=== PATIENT | male | born 1985 | race Caucasian/White ===

== ENCOUNTER 2021-01-16 11:46 | Outpatient (REF) | payer OTHER, SELFPAY | END 2021-01-16 11:47 | disposition home or self-care (01) | LOC: HO.LAB 11:46 | PROVIDERS: Visit Provider Internal Medicine | DX: Z20.822 Contact with and (suspected) exposure to COVID-19 (principal) | CPT/HCPCS: 36415; C9803; U0003; U0005 ==

== ENCOUNTER 2021-02-17 10:18 | Outpatient (REF) | payer MEDICAID, SELFPAY | END 2021-02-17 10:19 | disposition home or self-care (01) | LOC: HO.LAB 10:18 | PROVIDERS: Visit Provider Internal Medicine | DX: Z20.822 Contact with and (suspected) exposure to COVID-19 (principal) | CPT/HCPCS: 36415; C9803; U0003; U0005 ==

== ENCOUNTER 2021-03-13 11:42 | Outpatient (REF) | payer MEDICAID, SELFPAY ==
[2021-03-13 13:17] LABS: COVID-19 Test Negative (Negative); IDNOW Serial# 55D5AD1C
== END 2021-03-13 11:43 | disposition home or self-care (01) ==
LOC: HO.LAB 11:42
PROVIDERS: Visit Provider Internal Medicine
DX: Z20.822 Contact with and (suspected) exposure to COVID-19 (principal)
CPT/HCPCS: 36415; 87635; C9803

== ENCOUNTER 2021-03-24 11:06 | Outpatient (REF) | payer MEDICAID, SELFPAY ==
[2021-03-24 11:47] LABS: COVID-19 Test Negative (Negative)
== END 2021-03-24 11:07 | disposition home or self-care (01) ==
LOC: HO.LAB 11:06
PROVIDERS: Visit Provider Internal Medicine
DX: Z20.822 Contact with and (suspected) exposure to COVID-19 (principal)
CPT/HCPCS: 36415; 87635; C9803

== ENCOUNTER 2021-05-23 17:49 | Emergency (ER) | payer MEDICAID, SELFPAY ==
--- NOTE | ~2021-05-23 | XR_ITS ---
EXAMINATION: XR CHEST CLINICAL INFORMATION: Chest COMPARISON: None TECHNIQUE: 2 views of the chest were obtained. FINDINGS: No significant abnormality is noted involving the heart, lungs, mediastinum, bony thorax or soft tissues. XR/XR chest 2V IMPRESSION: Unremarkable examination.
[2021-05-23 18:16] VITALS: BP 145/70; PULSE 80; RESP 18; TEMP 36.7; O2SAT 97; BMI 30.5
--- NOTE | 2021-05-23 18:37 | ECG_ITS ---
Test Reason : CHEST PAIN Blood Pressure : / mmHG Vent. Rate : 086 BPM Atrial Rate : 086 BPM P-R Int : 136 ms QRS Dur : 080 ms QT Int : 362 ms P-R-T Axes : 046 050 022 degrees QTc Int : 433 ms Normal sinus rhythm Normal ECG No previous ECGs available Referred By: Generic ED Physician Electronically Signed By:Alan Zimmer
--- NOTE | 2021-05-23 19:34 | ED.CHESTPAIN ---
HPI - Chest Pain General Chief Complaint: Chest Pain Stated Complaint: chest pain Time Seen by Provider: 05/23/21 18:53 Source: patient Mode of arrival: ambulatory Limitations: no limitations History of Present Illness MD complaint: chest pain Onset (ago): day(s) (2) Timing of current episode: constant Prior episodes: No Onset: during rest Pain location: left chest Pain radiation: none Severity: moderate Quality: aching Relieving factors: nothing Exacerbating factors: palpation and movement Treatment prior to arrival: none Related Data Previous Rx's Medication Instructions Recorded cyclobenzaprine 10 mg PO TID PRN #14 tab 05/23/21 lidocaine 1 patch TOPICAL DAILY PRN #10 ea 05/23/21 Allergies Allergy/AdvReac Type Severity Reaction Status Date / Time Unable to Assess Allergy Verified 05/23/21 18:53 Review of Systems Review of Systems: Constitutional : No Weight loss, No Fever, No Chills ENT/Mouth : No sore throat, No Rhinorrhea Eyes: No Eye Pain, No Swelling Cardiovascular : pos Chest Pain, no SOB, no Dyspnea on Exertion, No Orthopnea, No Edema, No Palpitations Respiratory : No Cough, No Sputum Gastrointestinal : no Nausea, No Vomiting, No Diarrhea, No abdominal Pain, No Hematochezia, No Melena Genitourinary : No Dysuria, No Urinary Frequency Musculoskeletal : No joint pain, No Myalgias, No Joint Swelling Skin : No Skin Lesions, No rash Neuro : No Weakness, No Numbness, No Dizziness, No Headache Psych : No Anxiety/Panic, No Depression Heme/Lymph: No Bruising, No Lymphadenopathy Endocrine : No Polyuria, No Polydipsia All other systems reviewed and are negative [facility] Past Medical History Attestation statement: The following information was validated with the patient. Medical History No known health problems Social History Social History Alcohol intake: never Patient Tobacco Use Status: Current everyday Tobacco user Smoked in Last 30 Days: No Use of substances other than those prescribed or required for medical reasons: No Advance Directives: No Advance Directives Information Provided: Yes Physical Exam Vital Signs: Vital Signs: Last Vital Signs Temp 98.2 F 05/23/21 22:34 Pulse 76 05/23/21 22:34 Resp 16 05/23/21 22:34 BP 112/68 05/23/21 22:34 Pulse Ox 99 05/23/21 22:34 Body Mass Index 30.5 Appearance: Alert. Oriented X3. No acute distress. Eyes: Pupils equal, round and reactive to light. ENT: Pharynx normal. Neck: Normal inspection. Neck supple. CVS: Normal heart rate and rhythm. Pulses normal. Chest: L pectoralis ttp no mass/swelling/redness noted Respiratory: No respiratory distress. Breath sounds normal. Abdomen: Soft and nontender. Skin: Skin warm and dry. Normal skin color. Normal skin turgor. Extremities: No lower extremity edema. No calf ttp Neuro: Oriented X 3. No motor deficit. No sensory deficit. Course Course Course Narrative: nonischemic EKG, repeat trop flat - stable for DC MDM - Chest Pain MDM Narrative Medical decision making narrative: 36 yo male with no sig PMH here with reproduceable CWP for 2 days, no other symptoms, very tender on L pectoralis no infection/mass felt, PERC negative, distal pulses intact doubt dissection at this time will obtain EKG, CXR, 1 troponin if negative stable for DC with CWP Lab Data Result diagrams: 05/23/21 22:29 05/23/21 22:30 Labs: Lab Results 05/23/21 05/23/21 05/23/21 Range/Units 19:53 22:29 22:30 WBC 8.7 (4.8-10.8) X10*3/uL RBC 5.36 (4.60-5.80) X10*6/uL Hgb 15.9 (14.0-18.0) g/dl Hct 46.0 (42-52) % MCV 85.8 (80-98) fL MCH 29.7 (27.0-33.0) pg MCHC 34.6 (31.0-36.0) g/dl RDW 12.8 (11.0-16.0) % Plt Count 218 (160-400) X10*3/uL MPV 9.9 (9.4-12.4) fL Immature Gran % (Auto) 0.7 H (0.0-0.4) % Neut % (Auto) 60.9 (45-73) % Lymph % (Auto) 26.7 (20-40) % Taney % (Auto) 8.8 (2-11) % Eos % (Auto) 2.8 (0-4) % Baso % (Auto) 0.1 (0-2) % Lymph # (Auto) 2.3 (1.2-4.9) X10*3/uL Taney # (Auto) 0.8 (0.1-1.2) X10*3/uL Eos # (Auto) 0.2 (0.0-0.4) X10*3/uL Baso # (Auto) 0.0 (0.0-0.2) X10*3/uL Abs Immat Gran (auto) 0.06 H (0.00-0.03) X10*3/uL Absolute Neuts (auto) 5.3 (2.0-8.3) X10*3/uL Absolute Nucleated RBC 0.000 (0.0-0.012) X10*3/uL Nucleated RBC % (auto) 0.0 (0.0-0.2) /100WBC Sodium 141 (135-145) mmol/L Potassium 4.3 (3.3-5.1) mmol/L Chloride 108 (96-108) mmol/L Carbon Dioxide 24 (22-29) mmol/L Anion Gap 13 (12-20) BUN 10 (9-16) mg/dL Creatinine 0.82 (0.5-1.4) mg/dL Estim Creat Clear Calc 156.8 Estimated GFR > 60 Random Glucose 78 (60-115) mg/dL Calcium 9.2 (8.4-10.2) mg/dL Troponin I High Sens 15.9 (<3.5-35.0) ng/L C-Reactive Protein 0.15 (< or = 0.50) mg/dL 05/23/21 Range/Units 22:30 WBC (4.8-10.8) X10*3/uL RBC (4.60-5.80) X10*6/uL Hgb (14.0-18.0) g/dl Hct (42-52) % MCV (80-98) fL MCH (27.0-33.0) pg MCHC (31.0-36.0) g/dl RDW (11.0-16.0) % Plt Count (160-400) X10*3/uL MPV (9.4-12.4) fL Immature Gran % (Auto) (0.0-0.4) % Neut % (Auto) (45-73) % Lymph % (Auto) (20-40) % Taney % (Auto) (2-11) % Eos % (Auto) (0-4) % Baso % (Auto) (0-2) % Lymph # (Auto) (1.2-4.9) X10*3/uL Taney # (Auto) (0.1-1.2) X10*3/uL Eos # (Auto) (0.0-0.4) X10*3/uL Baso # (Auto) (0.0-0.2) X10*3/uL Abs Immat Gran (auto) (0.00-0.03) X10*3/uL Absolute Neuts (auto) (2.0-8.3) X10*3/uL Absolute Nucleated RBC (0.0-0.012) X10*3/uL Nucleated RBC % (auto) (0.0-0.2) /100WBC Sodium (135-145) mmol/L Potassium (3.3-5.1) mmol/L Chloride (96-108) mmol/L Carbon Dioxide (22-29) mmol/L Anion Gap (12-20) BUN (9-16) mg/dL Creatinine (0.5-1.4) mg/dL Estim Creat Clear Calc Estimated GFR Random Glucose (60-115) mg/dL Calcium (8.4-10.2) mg/dL Troponin I High Sens 14.2 (<3.5-35.0) ng/L C-Reactive Protein (< or = 0.50) mg/dL ECG Data ECG #1: Attestation: I personally reviewed and interpreted this ECG as follows: ECG interpretation date: 05/23/21 ECG interpretation time: 19:39 Interpretation: Rate: 86 Rhythm: NSR [place]: normal Normal P waves. Normal RAISA. Normal QRS complex. ST T wave : normal no NANCI qTC: normal prior studies: no acute ischemia The study has been interpreted contemporaneously by me. . Discharge Plan Discharge Clinical Impression: Acute chest wall pain Patient Disposition: Home, Self-Care Instructions: Chest Wall Pain (ED) Additional Instructions: return to ED for any worsening symptoms or concerns Prescriptions: New cyclobenzaprine 10 mg tablet 10 mg PO TID PRN (Reason: muscle spasm) Qty: 14 RF: 0 lidocaine 4 % adhesive patch,medicated 1 patch topical DAILY PRN (Reason: pain) Qty: 10 RF: 0 Referrals: Leatha Martinez MD [Primary Care Provider] - 2 days (if not better) Print Language: Brazilian
[2021-05-23 19:48] VITALS: BP 117/71; PULSE 81; RESP 17; TEMP 36.7; O2SAT 97
--- NOTE | 2021-05-23 19:51 | PC.NURSE ---
PT REPORTS LEFT SIDED CHEST PAIN RADIATING DOWN LEFT SIDE. DENIES ACCOMPANYING SYMPTOMS. NO WORSENING FACTORS. INTERMITTENT FOR DAYS WORSENING TODAY. SKIN PWD RESPIRATIONS EVEN UNLABORED, A&Ox4. VSS, NSR ON HEALTH IT SPECIALIST. EVALUATED BY DR. PINTO, AWAITING TESTING. AWARE OF PLAN OF CARE.
[2021-05-23] MEDS: Cyclobenzaprine HCl 10 MG TABLET PO (20:10)
[2021-05-23 20:40] LABS: Troponin-I High Sensitivity 15.9 ng/L (<3.5-35.0)
[2021-05-23 22:34] VITALS: BP 112/68; PULSE 76; RESP 16; TEMP 36.8; O2SAT 99
[2021-05-23 22:35] LABS: MANUAL DIFF FLAG NO
[2021-05-23 22:36] LABS: Basophils Percent Auto 0.1 % (0-2); Eosinophils Absolute Auto 0.2 X10*3/uL (0.0-0.4); Eosinophils Percent Auto 2.8 % (0-4); Hemoglobin 15.9 g/dl (14.0-18.0); Imm Gran Abs Auto 0.06 X10*3/uL (0.00-0.03); Imm Gran Pct Auto 0.7 % (0.0-0.4); Lymphocytes Absolute Auto 2.3 X10*3/uL (1.2-4.9); Lymphocytes Percent Auto 26.7 % (20-40); Mean Corpuscular HGB Conc 34.6 g/dl (31.0-36.0); Mean Corpuscular Hemoglobin 29.7 pg (27.0-33.0); Mean Corpuscular Volume 85.8 fL (80-98); Mean Platelet Volume 9.9 fL (9.4-12.4); Monocytes Absolute Auto 0.8 X10*3/uL (0.1-1.2); Monocytes Percent Auto 8.8 % (2-11); Neutrophils Absolute Auto 5.3 X10*3/uL (2.0-8.3); Neutrophils Percent Auto 60.9 % (45-73); Platelet Count 218 X10*3/uL (160-400); Red Blood Count 5.36 X10*6/uL (4.60-5.80); Red Cell Distribution Width 12.8 % (11.0-16.0); White Blood Count 8.7 X10*3/uL (4.8-10.8)
[2021-05-23 23:02] LABS: Anion Gap 13 (12-20); Blood Urea Nitrogen 10 mg/dL (9-16); C Reactive Protein 0.15 mg/dL (< or = 0.50); Calcium 9.2 mg/dL (8.4-10.2); Carbon Dioxide 24 mmol/L (22-29); Chloride 108 mmol/L (96-108); Creatinine Clr Calc Pharmacy 156.8; Estimated Glomerular Filt Rate > 60; Glucose Random 78 mg/dL (60-115); Potassium 4.3 mmol/L (3.3-5.1); Sodium 141 mmol/L (135-145)
[2021-05-23 23:09] LABS: Troponin-I High Sensitivity 14.2 ng/L (<3.5-35.0)
== END 2021-05-23 23:41 | disposition home or self-care (01) ==
PROVIDERS: Emergency Provider Emergency Medicine; PCP Pediatrics
DX: R07.89 Other chest pain (principal)
CPT/HCPCS: 36415; 71046; 80048; 84484; 85025; 86140; 93005; 99283; 99285

== ENCOUNTER 2021-06-16 14:17 | Outpatient (REF) | payer MEDICAID, SELFPAY ==
--- NOTE | ~2021-06-16 | MM_ITS ---
EXAMINATION: MM DIAGNOSTIC DIGITAL BREAST TOMOSYNTHESIS, BILATERAL US DIAGNOSTIC ULTRASOUND BREAST, LEFT CLINICAL INFORMATION: 36-year-old male with chronic fullness retroareolar left breast and tenderness for over one year. No nipple discharge. No prior breast imaging. COMPARISON: None (current study represents initial baseline exam). TECHNIQUE: Digital breast tomosynthesis is performed in both the craniocaudal and mediolateral oblique views along with computer-aided detection (CAD). Synthesized 2D images are generated from the tomosynthesis. Additional spot exaggerated left CC view is obtained. Ultrasound left breast is targeted to the retroareolar and periareolar regions as well as the outer quadrant. Grayscale imaging and color Doppler are performed without and with harmonics. FINDINGS: There are scattered areas of fibroglandular density (ACR BI-RADS breast composition Category b). Right breast tissue composition is fatty. There is mild gynecomastia type parenchymal pattern on left without underlying mass or architectural abnormality. There are no abnormal calcifications. The axilla and skin contours are unremarkable. There is no skin thickening or coarsening of the stromal markings. Ultrasound left breast demonstrates no cystic or solid mass, architectural abnormality, skin thickening, or edema tracking in soft tissue planes. Results are discussed with the patient at time of visit, using an sash assembler. Patient should be managed based on the clinical impression. If clinically indicated, further evaluation may be considered with surgical consult. Decision to proceed with biopsy should be based on clinical grounds and degree of clinical concern. MM/MM tomosynthesis diagnostic BI IMPRESSION: Mild asymmetric gynecomastia on left. Unremarkable right breast. ASSESSMENT: BI-RADS 2: Benign RECOMMENDATION: Patient may be managed based on the clinical impression as needed.
== END 2021-06-16 14:18 | disposition home or self-care (01) ==
LOC: HO.MAMMO 14:17
PROVIDERS: Visit Provider Emergency Medicine
DX: N63.32 Unspecified lump in axillary tail of the left breast (principal)
CPT/HCPCS: 76642; 77062; 77066

== ENCOUNTER 2022-05-16 13:24 | Outpatient (REF) | payer MEDICAID, SELFPAY ==
--- NOTE | ~2022-05-16 | US_ITS ---
EXAMINATION: US SOFT TISSUE HEAD/NECK CLINICAL INFORMATION: Right parotid swelling. COMPARISON: None TECHNIQUE: Linear transducer grayscale and color Doppler examination of the right parotid area with left scanned for comparison. FINDINGS: Imaging through the right parotid gland reveals no obvious mass, stone or fluid collection. The right parotid gland measures 5.4 x 2.3 x 4.4 cm. The left parotid gland measures 5.0 x 2.6 x 4.2 cm. No focal lesion, echogenic stone or edema seen. US/US soft tiss head and/or neck IMPRESSION: Bilateral symmetrical unremarkable parotid gland ultrasound.
== END 2022-05-16 13:25 | disposition home or self-care (01) ==
LOC: HO.US 13:24
PROVIDERS: Visit Provider Emergency Medicine
DX: K11.20 Sialoadenitis, unspecified (principal); R60.0 Localized edema
CPT/HCPCS: 76536

== ENCOUNTER 2022-05-16 19:12 | Emergency (ER) | payer MEDICAID, SELFPAY ==
--- NOTE | ~2022-05-16 | CT_ITS ---
EXAMINATION: CT SOFT TISSUE NECK WITHOUT CONTRAST CLINICAL INFORMATION: Bilateral lymphadenopathy. Question lymphoma. COMPARISON: None TECHNIQUE: Helical imaging was performed in the axial plane with generation of coronal and sagittal reformatted images. This CT examination was performed using dose optimization techniques as appropriate, variously including the following: *Automated exposure control *Adjustment of mA and/or kV according to patient size (this includes techniques or standardized protocols for targeted exams where dose is matched to indication/reason for exam; i.e. extremities or head) *Use of iterative reconstruction technique DLP: 695 mGy-cm FINDINGS: Mildly asymmetrically enlarged right jugulodigastric lymph node measuring approximately 1.1 cm in short axis on series 2-65. The lymph node is morphologically normal with preserved fatty hilum. No other pathologically enlarged cervical lymph nodes. The parotid glands are homogeneous in attenuation. The submandibular glands are normal. No contour abnormality is seen within the oral cavity or pharyngeal mucosal space. The laryngeal structures are normal. The parapharyngeal fat is preserved. Unremarkable appearance of the manager market development and carotid spaces. No extra mucosal soft tissue mass or fluid collection is seen. There is mild nonspecific fat stranding/edema in the right and left anterior neck deep to the platysma muscle. No retropharyngeal fluid collection is seen. The thyroid gland is normal. The superior mediastinum is unremarkable. The lung apices are clear. The mastoid air cells and visualized portions of the paranasal sinuses are well-aerated. The temporomandibular joints are normal. No periapical disease is identified. No acute osseous abnormalities are seen. Healed right clavicle fracture deformity. The imaged portions of the brain parenchyma are unremarkable. Globes and retro-orbital structures are within normal limits. CT/CT soft tissue neck wo con IMPRESSION: 1. Nonspecific mild fat stranding/edema deep to the platysma muscle on the right left sides of the anterior neck. No fluid collection. 2. Mildly asymmetrically prominent right jugulodigastric lymph node, nonspecific. No other enlarged cervical lymph nodes.
[2022-05-16 19:34] VITALS: BP 132/73; PULSE 94; RESP 18; TEMP 36.7; O2SAT 97; BMI 28.2
[2022-05-16 20:03] LABS: Strep A Nucleic Acid Negative (Negative)
[2022-05-16 20:07] LABS: COVID-19 Test Negative (Negative); IDNOW Serial# 16C4AD1C; Influenza A Negative (Negative); Influenza B2 Negative (Negative)
--- NOTE | 2022-05-16 22:20 | ED.URI ---
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 Patient tells me he is unsure about his vaccination status is he was born in [place]. He denies any recent sick contacts or travel. He denies any difficulty swallowing, difficulty breathing, shortness of breath, chest pain, vomiting, diarrhea or abdominal pain. Related Data Previous Rx's Medication Instructions Recorded cyclobenzaprine 10 mg tablet 10 mg PO TID PRN muscle spasm #14 05/23/21 tabs lidocaine 4 % topical patch 1 patch topical DAILY PRN pain #10 05/23/21 ea cefpodoxime 200 mg tablet 200 mg PO BID #14 tabs 05/16/22 doxycycline monohydrate 100 mg 100 mg PO BID #14 tabs 05/16/22 tablet Allergies Allergy/AdvReac Type Severity Reaction Status Date / Time Penicillins [PCN] Allergy Unknown Verified 05/16/22 19:36 Review of Systems Review of Systems: Yes all other systems are reviewed and are negative Constitutional: Constitutional: Reports no additional constitutional complaints, Denies body ache(s), Denies chills, Reports fever(s), Reports headache(s) and Denies weakness Eyes: Eyes: Reports no additional eye complaints and Denies change in vision ENT: Reports system reviewed and no additional complaints, except as documented, Denies dizziness, Reports headache(s), Denies nasal congestion, Denies nasal discharge, Denies neck pain and Reports sore throat Cardiovascular: Cardiovascular: Reports no additional cardiovascular complaints, Denies chest pain, Denies leg edema and Denies dyspnea Respiratory: Respiratory: Reports no additional respiratory complaints, Denies cough and Denies dyspnea Gastrointestinal: Gastrointestinal: Reports no additional gastrointestinal complaints, Denies abdominal pain, Denies diarrhea, Denies nausea and Denies vomiting Genitourinary: Genitourinary: Denies urinary incontinence Musculoskeletal: Musculoskeletal: Reports no additional musculoskeletal complaints, Denies back pain, Denies arthralgias, Denies joint swelling, Denies neck pain, Denies numbness and Denies tingling Integumentary/Breasts: Skin/Breast: Reports system reviewed and no additional complaints, except as docu and Denies rash Neurologic: Reports system reviewed and no additional complaints, except as documented, Denies Abnormal speech present, Denies dizziness, Reports headache(s), Denies numbness, Denies tingling and Denies weakness PMFSH Past Medical History Attestation statement: The following information was validated with the patient. Source: old records reviewed and nursing notes reviewed Medical History No known health problems Social History Social History Alcohol intake: never Patient Tobacco Use Status: Current everyday Tobacco user Advance Directives: No Advance Directives Information Provided: No Physical Exam Vital Signs: Vital Signs: Last Vital Signs Temp 98.1 F 05/16/22 19:34 Pulse 94 05/16/22 19:34 Resp 18 05/16/22 19:34 BP 132/73 05/16/22 19:34 Pulse Ox 97 05/16/22 19:34 O2 Del Method 05/16/22 19:34 BMI result Body Mass Index 28.2 Const: General: cooperative, healthy appearing, comfortable and no acute distress Orientation/consciousness: patient oriented x3 Limitations: no limitations HEENT: Head: Yes normal to inspection Ears: hearing grossly normal bilaterally and TM's normal bilaterally General nose exam: Normal external nose present Face and sinus: Yes normal facial exam Mouth: Normal oral and palatal mucosa present Throat: Yes posterior oropharynx normal, Yes tonsils normal and Yes uvula midline Eyes: General: appearance normal, both eyes and all related structures Pupils: Equal, round and reactive pupils present Neck: Other: Bilateral preauricular and postauricular lymphadenopathy Neck: Yes normal visual inspection and Yes full ROM Chest: Chest palpation & inspection: normal inspection of the chest Resp: Effort & Inspection: normal respiratory effort Auscultation: clear to auscultation bilaterally Cardio: Rate: regular rate Rhythm: regular rhythm Peripheral pulses: Peripheral pulses 2+ throughout GI: Inspection: Yes normal to inspection Palpation (GI): Soft to palpation and nontender Auscultation: normal bowel sounds Back/Spine/Pelvis: Thoracic/Lumbar Spine: thoracic and lumbar spine normal to inspection Skin: General skin exam: no rashes or lesions noted Neuro: General: patient oriented x3, no focal motor deficits and normal sensation to monofilament Cranial nerves: Yes Equal, round and reactive pupils present Cognition (Neuro): normal cognition Speech: No Abnormal speech present Gait exam (Neuro): Normal gait present Motor exam (neuro): 5/5 motor strength present throughout Extrem: General: Yes normal to inspection Course Course Course Narrative: 37-year-old male here with 2 days of flu-like symptoms in addition to bilateral lymphadenopathy. Rapid flu, strep and COVID from triage are negative. Due to lymphadenopathy there is additional concern for mononucleosis, lymphoma, parotitis. will check labs, monoscreen, CT softneck Reevaluation(s) Reevaluation #1: the patient was evaluated during a time of global shortage of iodinated contrast media. Based on guidance from the [employer], best practices, and local institutional broaches alternate past for evaluating managing the patient may have been employed in order to provide optimal care during the shortage. The current situation has been discussed with the patient Reevaluation #2: CT soft tissue neck MPRESSION: 1.? Nonspecific mild fat stranding/edema deep to the platysma muscle on the right left sides of the anterior neck. No fluid collection. 2.? Mildly asymmetrically prominent right jugulodigastric lymph node, nonspecific. No other enlarged cervical lymph nodes. _labs and mono negative Dicussed with Dr Yanez. Non-specific findings on CT. Will treat with course of antibiotics with Strict f/u with PCP in 7 days for resolution of symptoms. Explained to patient if no improvement he may need further w/u including biopsy. this was explained with the lead data entry operator. reviewed worrisome signs and symptoms of when to return to the emergency department. Comfortable discharge home. Time: 23:50 MDM - URI/Sore Throat MDM Narrative Medical decision making narrative: viral syndrome, mononucleosis, lymphoma, parotitis Medical Records Attestation: I reviewed the patient's medical records. Lab Data Attestation: I reviewed the patient's lab results. Result diagrams: 05/16/22 22:18 05/16/22 22:18 Labs: Lab Results 05/16/22 05/16/22 05/16/22 Range/Units 19:37 19:37 19:37 WBC (4.8-10.8) X10*3/uL RBC (4.60-5.80) X10*6/uL Hgb (14.0-18.0) g/dl Hct (42.0-52.0) % MCV (80.0-98.0) fL MCH (27.0-33.0) pg MCHC (31.0-36.0) g/dl RDW (11.0-16.0) % Plt Count (160-400) X10*3/uL MPV (9.4-12.4) fL Immature Gran % (Auto) (0.0-0.4) % Neut % (Auto) (45-73) % Lymph % (Auto) (20-40) % Wright % (Auto) (2-11) % Eos % (Auto) (0-4) % Baso % (Auto) (0-2) % Lymph # (Auto) (1.2-4.9) X10*3/uL Wright # (Auto) (0.1-1.2) X10*3/uL Eos # (Auto) (0.0-0.4) X10*3/uL Baso # (Auto) (0.0-0.2) X10*3/uL Abs Immat Gran (auto) (0.00-0.03) X10*3/uL Absolute Neuts (auto) (2.0-8.3) x10*3/uL Absolute Nucleated RBC (0.0-0.012) X10*3/uL Nucleated RBC % (auto) (0.0-0.2) /100WBC Sodium (135-145) mmol/L Potassium (3.3-5.1) mmol/L Chloride (96-108) mmol/L Carbon Dioxide (22-29) mmol/L Anion Gap (12-20) BUN (9-16) mg/dL Creatinine (0.5-1.4) mg/dL Estim Creat Clear Calc Estimated GFR Random Glucose (60-115) mg/dL Calcium (8.4-10.2) mg/dL COVID-19 (CASPER) Negative (Negative) COVID-19 Clin Com See Note Monoscreen (Negative) Influenza Type A (EDDIE) Negative (Negative) Influenza Type B (EDDIE) Negative (Negative) Influenza A & B Note See Note S. pyogenes GrpA EDDIE Negative (Negative) 05/16/22 05/16/22 05/16/22 Range/Units 22:18 22:18 22:18 WBC 9.3 (4.8-10.8) X10*3/uL RBC 5.56 (4.60-5.80) X10*6/uL Hgb 16.2 (14.0-18.0) g/dl Hct 46.5 (42.0-52.0) % MCV 83.6 (80.0-98.0) fL MCH 29.1 (27.0-33.0) pg MCHC 34.8 (31.0-36.0) g/dl RDW 12.7 (11.0-16.0) % Plt Count 230 (160-400) X10*3/uL MPV 9.9 (9.4-12.4) fL Immature Gran % (Auto) 0.3 (0.0-0.4) % Neut % (Auto) 74.0 H (45-73) % Lymph % (Auto) 15.6 L (20-40) % Wright % (Auto) 8.7 (2-11) % Eos % (Auto) 1.3 (0-4) % Baso % (Auto) 0.1 (0-2) % Lymph # (Auto) 1.5 (1.2-4.9) X10*3/uL Wright # (Auto) 0.8 (0.1-1.2) X10*3/uL Eos # (Auto) 0.1 (0.0-0.4) X10*3/uL Baso # (Auto) 0.0 (0.0-0.2) X10*3/uL Abs Immat Gran (auto) 0.03 (0.00-0.03) X10*3/uL Absolute Neuts (auto) 6.9 (2.0-8.3) x10*3/uL Absolute Nucleated RBC 0.000 (0.0-0.012) X10*3/uL Nucleated RBC % (auto) 0.0 (0.0-0.2) /100WBC Sodium 138 (135-145) mmol/L Potassium 4.1 (3.3-5.1) mmol/L Chloride 107 (96-108) mmol/L Carbon Dioxide 22 (22-29) mmol/L Anion Gap 13 (12-20) BUN 11 (9-16) mg/dL Creatinine 0.87 (0.5-1.4) mg/dL Estim Creat Clear Calc 141.3 Estimated GFR > 60 Random Glucose 100 (60-115) mg/dL Calcium 8.9 (8.4-10.2) mg/dL COVID-19 (CASPER) (Negative) COVID-19 Clin Com Monoscreen Negative (Negative) Influenza Type A (DEDIE) (Negative) Influenza Type B (EDDIE) (Negative) Influenza A & B Note S. pyogenes GrpA EDDIE (Negative) Imaging Data Ct soft tissue neck: Attestation: I personally reviewed and interpreted this imaging study as follows: Radiologist's impression: FINDINGS: Mildly asymmetrically enlarged right jugulodigastric lymph node measuring approximately 1.1 cm in short axis on series 2-65. The lymph node is morphologically normal with preserved fatty hilum. No other pathologically enlarged cervical lymph nodes. The parotid glands are homogeneous in attenuation. The submandibular glands are normal. No contour abnormality is seen within the oral cavity or pharyngeal mucosal space. The laryngeal structures are normal. The parapharyngeal fat is preserved. Unremarkable appearance of the budget engineer and carotid spaces. No extra mucosal soft tissue mass or fluid collection is seen. There is mild nonspecific fat stranding/edema in the right and left anterior neck deep to the platysma muscle. No retropharyngeal fluid collection is seen. The thyroid gland is normal. The superior mediastinum is unremarkable. The lung apices are clear. The mastoid air cells and visualized portions of the paranasal sinuses are well-aerated. The temporomandibular joints are normal. No periapical disease is identified. No acute osseous abnormalities are seen. Healed right clavicle fracture deformity. The imaged portions of the brain parenchyma are unremarkable. Globes and retro-orbital structures are within normal limits. CT/CT soft tissue neck wo con IMPRESSION: 1.? Nonspecific mild fat stranding/edema deep to the platysma muscle on the right left sides of the anterior neck. No fluid collection. 2.? Mildly asymmetrically prominent right jugulodigastric lymph node, nonspecific. No other enlarged cervical lymph nodes. Discharge Plan Discharge Clinical Impression: Lymphadenopathy Patient Disposition: Home, Self-Care Additional Instructions: you must see your primary care doctor after completing the antibiotics to make sure that this is improved. If it is not improved you may need a biopsy Salt water gargles Fluids, rest please be aware that you were seen during a time of global shorted by denied contrast media. This means an alternative approach to her diagnosis and treatment may have been employed in order to provide optimal care during the shortage. If you have any worsening symptoms please go to the nearest emergency department or call 911 immediately Prescriptions: New doxycycline monohydrate 100 mg tablet 100 mg PO BID Qty: 14 0RF cefpodoxime 200 mg tablet 200 mg PO BID Qty: 14 0RF Rx Instructions: must administer with a meal/food No Action cyclobenzaprine 10 mg tablet 10 mg PO TID PRN (Reason: muscle spasm) Qty: 14 0RF lidocaine 4 % adhesive patch,medicated 1 patch topical DAILY PRN (Reason: pain) Qty: 10 0RF Rx Instructions: may leave on for up to 12 hrs Referrals: Physician,Unknown J [Primary Care Provider] - 1 week (for improvement of lymphadenopathy ) Stand Alone Forms: Work/School Release Interventions: ED Discharge Assessment Last Done: 05/16/22 23:48 Discharge Date/Time: 05/16/22 23:48 Print Language: Greek
[2022-05-16 22:35] LABS: MANUAL DIFF FLAG NO
[2022-05-16 22:37] LABS: Basophils Percent Auto 0.1 % (0-2); Eosinophils Absolute Auto 0.1 X10*3/uL (0.0-0.4); Eosinophils Percent Auto 1.3 % (0-4); Hematocrit 46.5 % (42.0-52.0); Hemoglobin 16.2 g/dl (14.0-18.0); Imm Gran Abs Auto 0.03 X10*3/uL (0.00-0.03); Imm Gran Pct Auto 0.3 % (0.0-0.4); Lymphocytes Absolute Auto 1.5 X10*3/uL (1.2-4.9); Lymphocytes Percent Auto 15.6 % (20-40); Mean Corpuscular HGB Conc 34.8 g/dl (31.0-36.0); Mean Corpuscular Hemoglobin 29.1 pg (27.0-33.0); Mean Corpuscular Volume 83.6 fL (80.0-98.0); Mean Platelet Volume 9.9 fL (9.4-12.4); Monocytes Absolute Auto 0.8 X10*3/uL (0.1-1.2); Monocytes Percent Auto 8.7 % (2-11); Neutrophils Absolute Auto 6.9 x10*3/uL (2.0-8.3); Platelet Count 230 X10*3/uL (160-400); Red Blood Count 5.56 X10*6/uL (4.60-5.80); Red Cell Distribution Width 12.7 % (11.0-16.0); White Blood Count 9.3 X10*3/uL (4.8-10.8)
[2022-05-16 23:01] LABS: Anion Gap 13 (12-20); Blood Urea Nitrogen 11 mg/dL (9-16); Calcium 8.9 mg/dL (8.4-10.2); Carbon Dioxide 22 mmol/L (22-29); Chloride 107 mmol/L (96-108); Creatinine Clr Calc Pharmacy 141.3; Estimated Glomerular Filt Rate > 60; Glucose Random 100 mg/dL (60-115); Potassium 4.1 mmol/L (3.3-5.1); Sodium 138 mmol/L (135-145)
[2022-05-16 23:14] LABS: Monotest Negative (Negative)
== END 2022-05-16 23:48 | disposition home or self-care (01) ==
PROVIDERS: Emergency Medicine Emergency Medical Services; Nurse Practitioner Family; Emergency Provider Internal Medicine
DX: R59.1 Generalized enlarged lymph nodes (principal); Z20.822 Contact with and (suspected) exposure to COVID-19
CPT/HCPCS: 36415; 70490; 80048; 85025; 86308; 87502; 87635; 87651; 99282; 99284

== ENCOUNTER 2022-10-08 12:47 | Inpatient (IN) | payer MEDICAID, SELFPAY ==
--- NOTE | ~2022-10-08 | XR_ITS ---
EXAMINATION: XR KNEE, LEFT CLINICAL INFORMATION: Pain and swelling COMPARISON: None TECHNIQUE: Four views of the left knee. FINDINGS: Bones and soft tissues are normal. No fracture or joint effusion. Alignment is anatomic. Joint spaces are well maintained. No abnormal soft tissue calcification. XR/XR knee LT 4V IMPRESSION: Normal left knee.
--- NOTE | ~2022-10-08 | CT_ITS ---
EXAMINATION: CT knee LT w IV con CLINICAL INFORMATION: Reason for Exam left leg deep Abscess COMPARISON: None. TECHNIQUE: Multidetector CT imaging of the left knee was performed after the administration of 85 mL Omnipaque 350 intravenous contrast. Coronal and sagittal reformats created on an independent workstation were reviewed. This CT examination was performed using dose optimization techniques as appropriate, variously including the following: *Automated exposure control *Adjustment of mA and/or kV according to patient size (this includes techniques or standardized protocols for targeted exams where dose is matched to indication/reason for exam; i.e. extremities or head) *Use of iterative reconstruction technique DLP: 293 mGy-cm FINDINGS: No fractures. Joint spaces are maintained. No erosive changes. No joint effusion. Cruciate ligaments are intact. No obvious meniscal pathology. Subcutaneous fat stranding and fluid present along the distal lateral and posterior thigh extending distally about the knee joint and along the lateral lower extremity along the anterior and lateral to lesser extent posterior compartments. There is mild fat stranding in the popliteal fossa, and surrounding the biceps Rush and proximal gastrocnemius musculature. No drainable collection. No soft tissue gas to suggest necrotizing fasciitis. CT/CT knee LT w IV con IMPRESSION: * Subcutaneous fat stranding and fluid along the distal thigh laterally and posteriorly, along the knee laterally and proximal lower extremity, compatible with cellulitis. No drainable collection. * No soft tissue gas to suggest necrotizing fasciitis. * No joint effusion to suggest septic arthritis. * No evidence of osteomyelitis.
[2022-10-08 13:00] VITALS: BP 120/78; PULSE 99; O2SAT 100
[2022-10-08 14:25] VITALS: BP 123/76; PULSE 110; RESP 18; TEMP 38.1; O2SAT 100; BMI 29.1
--- NOTE | 2022-10-08 14:25 | ED_ITS ---
HPI - Extremity Problem General Chief complaint: Skin/Abscess/Foreign Body Stated complaint: L ANKLE/KNEE PAIN/SWELLING S/P POPPING PIMPLE Time Seen by Provider: 10/08/22 15:29 Related Data Previous Rx's Medication Instructions Recorded doxycycline hyclate 100 mg capsule 100 mg PO BID #10 caps 10/12/22 Allergies Allergy/AdvReac Type Severity Reaction Status Date / Time Penicillins [PCN] Allergy Unknown Verified 05/16/22 19:36 [facility] Past Medical History Medical History No known health problems Social History Social History Household Members: Spouse Housing: Apartment Do you presently have visiting nurse or other home services: No Alcohol intake: never Patient Tobacco Use Status: Current everyday Tobacco user Tobacco use type: Cigarette Cigarettes Per Day: 2 e-Cigarette/Vaping Use: Currently Using service: No Current occupational status: employed Physical Exam Vital Signs: Vital Signs: Last Vital Signs Temp 97.8 F 10/12/22 11:38 Pulse 79 10/12/22 11:38 Resp 18 10/12/22 11:38 BP 113/68 10/12/22 11:38 Pulse Ox 95 10/12/22 11:38 O2 Del Method 10/12/22 11:38 BMI result Body Mass Index 29.1 Course Reevaluation(s) Reevaluation #1: 5 days of knee pain and swelling, now with abscess that ruptured and pus is coming out. Knee with swelling and erythema with pus coming out from behind knee. Time: 14:27 Medications Administered Discontinued Medications Generic Name Dose Route Start Last Admin Trade Name Freq PRN Reason Stop Dose Admin Acetaminophen 650 mg 10/08/22 16:52 10/09/22 23:32 Acetaminophen 325 Mg Tablet PO 650 mg Q6H PRN Administration Pain, Mild (Pain Scale 1-3) Sodium Chloride 2,925.66 mls @ 2,925.66 mls/hr 10/08/22 14:28 10/08/22 17:54 Ns 30 ml/kg infuse over 1 hr (2925.66 ml) 10/08/22 15:27 Infused IVCONT Infusion .Q1H ONE Doxycycline Hyclate 100 mg/ 250 mls @ 166.67 mls/hr 10/08/22 15:36 10/08/22 22:20 Sodium Chloride IV 10/08/22 17:05 Infused ONCE ONE Infusion Vancomycin HCl 2,000 mg in 520 mls @ 260 mls/hr 10/08/22 16:12 10/09/22 07:24 Vancomycin/Ns IV 10/08/22 18:11 Infused ONCE ONE Infusion Dextrose/Sodium Chloride 1,000 mls @ 100 mls/hr 10/08/22 17:00 10/09/22 09:09 D5ns IVCONT Infused .Q10H PRAVEEN Infusion Vancomycin HCl 1,000 mg/ 270 mls @ 270 mls/hr 10/08/22 17:00 10/08/22 18:17 Sodium Chloride IV Not Given Q12H PRAVEEN Doxycycline Hyclate 100 mg/ 250 mls @ 166.67 mls/hr 10/08/22 17:00 10/08/22 18:26 Sodium Chloride IV Not Given Q12H PRAVEEN Vancomycin HCl 1,000 mg/ 270 mls @ 270 mls/hr 10/09/22 08:00 10/09/22 20:17 Sodium Chloride IV Infused Q12H PRAVEEN Infusion Vancomycin HCl 1,250 mg/ 250 mls @ 166.667 mls/hr 10/10/22 08:00 10/10/22 21:25 Sodium Chloride IV Infused Q12H PRAVEEN Infusion Vancomycin HCl 1,250 mg/ 250 mls @ 166.667 mls/hr 10/11/22 06:30 10/12/22 01:37 Sodium Chloride IV Infused Q8H PRAVEEN Infusion Vancomycin HCl 1,250 mg/ 250 mls @ 166.667 mls/hr 10/12/22 10:00 10/12/22 13:05 Sodium Chloride IV Infused Q12H PRAVEEN Infusion Iohexol 100 ml 10/08/22 16:28 10/08/22 16:28 Iohexol 350 Mg/Ml 100 Ml Infus..Btl IV 10/08/22 16:29 85 ml ONCE ONE Administration Ketorolac Tromethamine 30 mg 10/10/22 14:13 10/10/22 15:26 Ketorolac Tromethamine 30 Mg/Ml Vial IVPUSH 30 mg Q6H PRN Administration Pain, Moderate (Pain Scale 4-6 Lidocaine HCl 30 ml 10/10/22 13:15 10/10/22 13:29 Lidocaine Hcl 1 % 20 Ml Vial INFILTRATI 10/10/22 13:16 20 ml ONCE ONE Administration Melatonin 3 mg 10/08/22 16:52 10/11/22 22:17 Melatonin 3 Mg Tablet PO 3 mg BEDTIME PRN Administration Insomnia Morphine Sulfate 2 mg 10/10/22 13:30 10/10/22 13:40 Morphine Sulfate 2 Mg/Ml Cartridge IVPUSH 10/10/22 13:31 2 mg ONCE ONE Administration Protocol Morphine Sulfate 4 mg 10/10/22 14:13 10/10/22 17:34 Morphine Sulfate 4 Mg/Ml Cartridge IVPUSH 4 mg Q4H PRN Administration Pain, Severe (Pain Scale 7-10) Protocol Ondansetron HCl 4 mg 10/08/22 16:52 10/09/22 19:12 Ondansetron Hcl 4 Mg/2 Ml Vial IVPUSH 4 mg Q8H PRN Administration Nausea and Vomiting Oxycodone HCl 5 mg 10/10/22 14:13 10/12/22 07:35 Oxycodone Hcl Immed Release 5 Mg Tablet PO 5 mg Q4H PRN Administration Pain, Moderate (Pain Scale 4-6 Sodium Chloride 3 ml 10/09/22 00:00 10/12/22 07:31 0.9 % Sodium Chloride Flush 3 Ml Syringe IVFLUSH 3 ml QSHIFT PRAVEEN Administration MDM - Extremity (Nontraumatic) Lab Data Result diagrams: 10/10/22 07:44 10/12/22 06:28 Labs: Lab Results 10/08/22 10/08/22 10/08/22 Range/Units 14:46 14:46 14:46 WBC 17.9 H (4.8-10.8) X10*3/uL RBC 5.36 (4.60-5.80) X10*6/uL Hgb 15.9 (14.0-18.0) g/dl Hct 46.8 (42.0-52.0) % MCV 87.3 (80.0-98.0) fL MCH 29.7 (27.0-33.0) pg MCHC 34.0 (31.0-36.0) g/dl RDW 13.1 (11.0-16.0) % Plt Count 233 (160-400) X10*3/uL MPV 9.7 (9.4-12.4) fL Immature Gran % (Auto) 0.8 H (0.0-0.4) % Neut % (Auto) 84.4 H (45-73) % Lymph % (Auto) 7.6 L (20-40) % [place] % (Auto) 6.8 (2-11) % Eos % (Auto) 0.2 (0-4) % Baso % (Auto) 0.2 (0-2) % Lymph # (Auto) 1.4 (1.2-4.9) X10*3/uL [place] # (Auto) 1.2 (0.1-1.2) X10*3/uL Eos # (Auto) 0.0 (0.0-0.4) X10*3/uL Baso # (Auto) 0.0 (0.0-0.2) X10*3/uL Abs Immat Gran (auto) 0.15 H (0.00-0.03) X10*3/uL Absolute Neuts (auto) 15.1 H (2.0-8.3) x10*3/uL Absolute Nucleated RBC 0.000 (0.0-0.012) X10*3/uL Nucleated RBC % (auto) 0.0 (0.0-0.2) /100WBC PT 13.3 H (10.0-13.1) SEC INR 1.2 H (0.9-1.1) APTT 30.5 (26.0-36.4) SEC Sodium (135-145) mmol/L Potassium (3.3-5.1) mmol/L Chloride (96-108) mmol/L Carbon Dioxide (22-29) mmol/L Anion Gap (12-20) BUN (9-16) mg/dL Creatinine (0.5-1.4) mg/dL Estim Creat Clear Calc Estimated GFR Random Glucose (60-115) mg/dL Lactic Acid 1.4 (0.5-2.0) mmol/L Calcium (8.4-10.2) mg/dL Total Bilirubin (0.0-1.0) mg/dL 10/08/22 Range/Units 14:46 WBC (4.8-10.8) X10*3/uL RBC (4.60-5.80) X10*6/uL Hgb (14.0-18.0) g/dl Hct (42.0-52.0) % MCV (80.0-98.0) fL MCH (27.0-33.0) pg MCHC (31.0-36.0) g/dl RDW (11.0-16.0) % Plt Count (160-400) X10*3/uL MPV (9.4-12.4) fL Immature Gran % (Auto) (0.0-0.4) % Neut % (Auto) (45-73) % Lymph % (Auto) (20-40) % [place] % (Auto) (2-11) % Eos % (Auto) (0-4) % Baso % (Auto) (0-2) % Lymph # (Auto) (1.2-4.9) X10*3/uL [place] # (Auto) (0.1-1.2) X10*3/uL Eos # (Auto) (0.0-0.4) X10*3/uL Baso # (Auto) (0.0-0.2) X10*3/uL Abs Immat Gran (auto) (0.00-0.03) X10*3/uL Absolute Neuts (auto) (2.0-8.3) x10*3/uL Absolute Nucleated RBC (0.0-0.012) X10*3/uL Nucleated RBC % (auto) (0.0-0.2) /100WBC PT (10.0-13.1) SEC INR (0.9-1.1) APTT (26.0-36.4) SEC Sodium 141 (135-145) mmol/L Potassium 4.1 (3.3-5.1) mmol/L Chloride 104 (96-108) mmol/L Carbon Dioxide 25 (22-29) mmol/L Anion Gap 16 (12-20) BUN 13 (9-16) mg/dL Creatinine 0.94 (0.5-1.4) mg/dL Estim Creat Clear Calc 132.7 Estimated GFR > 60 Random Glucose 111 (60-115) mg/dL Lactic Acid (0.5-2.0) mmol/L Calcium 9.2 (8.4-10.2) mg/dL Total Bilirubin 1.3 H (0.0-1.0) mg/dL Discharge Plan Discharge Clinical Impression: Cellulitis Patient Disposition: Admitted As Inpatient Interventions: Admission Worksheet (ED) Last Done: 10/09/22 04:07 Discharge Date/Time: 10/09/22 04:08
[2022-10-08 15:00] LABS: MANUAL DIFF FLAG NO
[2022-10-08 15:02] LABS: Basophils Percent Auto 0.2 % (0-2); Eosinophils Percent Auto 0.2 % (0-4); Hematocrit 46.8 % (42.0-52.0); Hemoglobin 15.9 g/dl (14.0-18.0); Imm Gran Abs Auto 0.15 X10*3/uL (0.00-0.03); Imm Gran Pct Auto 0.8 % (0.0-0.4); Lymphocytes Absolute Auto 1.4 X10*3/uL (1.2-4.9); Lymphocytes Percent Auto 7.6 % (20-40); Mean Corpuscular Hemoglobin 29.7 pg (27.0-33.0); Mean Corpuscular Volume 87.3 fL (80.0-98.0); Mean Platelet Volume 9.7 fL (9.4-12.4); Monocytes Absolute Auto 1.2 X10*3/uL (0.1-1.2); Monocytes Percent Auto 6.8 % (2-11); Neutrophils Absolute Auto 15.1 x10*3/uL (2.0-8.3); Neutrophils Percent Auto 84.4 % (45-73); Platelet Count 233 X10*3/uL (160-400); Red Blood Count 5.36 X10*6/uL (4.60-5.80); Red Cell Distribution Width 13.1 % (11.0-16.0); White Blood Count 17.9 X10*3/uL (4.8-10.8)
[2022-10-08 15:08] LABS: INTERNATIONAL NORM RATIO 1.2 (0.9-1.1); Prothrombin Time 13.3 SEC (10.0-13.1)
[2022-10-08 15:10] LABS: Partial Thromboplastin Time 30.5 SEC (26.0-36.4)
[2022-10-08 15:14] LABS: Lactic Acid 1.4 mmol/L (0.5-2.0)
[2022-10-08 15:15] LABS: Anion Gap 16 (12-20); Bilirubin Total 1.3 mg/dL (0.0-1.0); Blood Urea Nitrogen 13 mg/dL (9-16); Calcium 9.2 mg/dL (8.4-10.2); Carbon Dioxide 25 mmol/L (22-29); Chloride 104 mmol/L (96-108); Creatinine Clr Calc Pharmacy 132.7; Estimated Glomerular Filt Rate > 60; Glucose Random 111 mg/dL (60-115); Potassium 4.1 mmol/L (3.3-5.1); Sodium 141 mmol/L (135-145)
--- NOTE | 2022-10-08 15:40 | ED.GENADULT ---
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 Started as pimple on the back of the left leg and itching then started to have redness and hotness to that left leg, fever and chills, patient declined using IV drug abuse or using needle in this area. Related Data Previous Rx's Medication Instructions Recorded cyclobenzaprine 10 mg tablet 10 mg PO TID PRN muscle spasm #14 05/23/21 tabs lidocaine 4 % topical patch 1 patch topical DAILY PRN pain #10 05/23/21 ea cefpodoxime 200 mg tablet 200 mg PO BID #14 tabs 05/16/22 doxycycline monohydrate 100 mg 100 mg PO BID #14 tabs 05/16/22 tablet Allergies Allergy/AdvReac Type Severity Reaction Status Date / Time Penicillins [PCN] Allergy Unknown Verified 05/16/22 19:36 Review of Systems Review of Systems: All other systems are reviewed and are negative Constitutional: Reports as per HPI and Reports no additional constitutional complaints Eyes: Reports as per HPI and Reports no additional eye complaints Reports system reviewed and no additional complaints, except as documented Cardiovascular: Reports as per HPI and Reports no additional cardiovascular complaints Respiratory: Reports as per HPI and Reports no additional respiratory complaints Gastrointestinal: Reports as per HPI and Reports no additional gastrointestinal complaints Genitourinary: Reports no additional female genitourinary complaints Musculoskeletal: Reports no additional musculoskeletal complaints Skin/Breast: Reports system reviewed and no additional complaints, except as docu Psychiatric: Reports no additional psychiatric complaints Endocrine: Reports no additional endocrine complaints Hematologic/Lymphatic: Reports no additional hematologic/lymphatic complaints Allergic/Immunologic: Reports no additional allergic/immunologic complaints Reports system reviewed and no additional complaints, except as documented and Reports Abnormal speech present [facility] Past Medical History Medical History No known health problems Social History Social History Alcohol intake: never Patient Tobacco Use Status: Current everyday Tobacco user Advance Directives: No Advance Directives Information Provided: No Physical Exam ED Vital Signs: Vital Signs - 24 hr 10/08/22 14:25 Temperature 100.5 F H Pulse Rate 110 H Respiratory Rate 18 Blood Pressure 123/76 Pulse Oximetry 100 Oxygen Delivery Method Room Air BMI result Body Mass Index 29.1 vital signs have been reviewed as appeared to be correct. Blood pressure normal. tachycardic. Respiration rate normal. Febrile. Oxygen saturation normal. Appearance: Alert. Oriented X3. No acute distress. Head: Normal external exam. Normocephalic. Atraumatic. No Chance signs noted. No raccoon eyes noted Eyes: PERRLA. EOMI. Conjunctiva and sclera normal. Eyelids normal. ENT: TM's Normal. Pharynx normal. Uvula midline. Moist mucous membranes. No trismus noted. No drooling noted. No muffled voice noted. Neck: Normal inspection. Neck supple. FROM. No adenopathy. Thyroid Normal. No meningeal signs. No neck mass noted. CVS: Normal heart rate and rhythm. Heart sound normal. No murmurs noted. Pulses normal throughout. Respiratory: No respiratory distress. Painless inspiration. Breath sounds normal. No wheezes/rales/rhonchi noted. Chest nontender. No accessory muscle usage noted or decreased air movement noted. Abdomen: Soft and nontender. Bowel sounds normal in all 4 quadrants. No distention noted. No organomegaly noted. No visible injury noted. Back: No CVA tenderness. Full range of motion noted. Skin: Skin warm and dry. Normal skin color. Normal skin turgor. No rashes/lesions/lacerations noted. Extremities: left le x 10 cm area of redness and hotness with tenderness, tense. Neuro: Cranial nerve exam: II-XII are grossly intact No motor deficit. No sensory deficit. Reflexes normal. Course Course Course Narrative: left lower extremity cellulitis with no discrete abscess to be drained. Patient meet criteria for SIRS but no septic shock or severe sepsis. Patient is allergic to penicillin will start on doxycycline with vancomycin. Admit the patient for further IV antibiotic management. Medications Administered Discontinued Medications Generic Name Dose Route Start Last Admin Trade Name Freq PRN Reason Stop Dose Admin Sodium Chloride 2,925.66 mls @ 2,925.66 mls/hr 10/08/22 14:28 11/07/22 15:44 Ns 30 ml/kg infuse over 1 hr (2925.66 ml) 10/08/22 15:27 2,925.66 mls/hr IVCONT Administration .Q1H ONE Iohexol 100 ml 10/08/22 16:28 10/08/22 16:28 Iohexol 350 Mg/Ml 100 Ml Infus..Btl IV 10/08/22 16:29 85 ml ONCE ONE Administration Medical Decision Making Lab Data Lab results reviewed: Yes I reviewed the patient's lab results. Result diagrams: 10/08/22 14:46 10/08/22 14:46 Labs: Lab Results 10/08/22 10/08/22 10/08/22 Range/Units 14:46 14:46 14:46 WBC 17.9 H (4.8-10.8) X10*3/uL RBC 5.36 (4.60-5.80) X10*6/uL Hgb 15.9 (14.0-18.0) g/dl Hct 46.8 (42.0-52.0) % MCV 87.3 (80.0-98.0) fL MCH 29.7 (27.0-33.0) pg MCHC 34.0 (31.0-36.0) g/dl RDW 13.1 (11.0-16.0) % Plt Count 233 (160-400) X10*3/uL MPV 9.7 (9.4-12.4) fL Immature Gran % (Auto) 0.8 H (0.0-0.4) % Neut % (Auto) 84.4 H (45-73) % Lymph % (Auto) 7.6 L (20-40) % [place] % (Auto) 6.8 (2-11) % Eos % (Auto) 0.2 (0-4) % Baso % (Auto) 0.2 (0-2) % Lymph # (Auto) 1.4 (1.2-4.9) X10*3/uL [place] # (Auto) 1.2 (0.1-1.2) X10*3/uL Eos # (Auto) 0.0 (0.0-0.4) X10*3/uL Baso # (Auto) 0.0 (0.0-0.2) X10*3/uL Abs Immat Gran (auto) 0.15 H (0.00-0.03) X10*3/uL Absolute Neuts (auto) 15.1 H (2.0-8.3) x10*3/uL Absolute Nucleated RBC 0.000 (0.0-0.012) X10*3/uL Nucleated RBC % (auto) 0.0 (0.0-0.2) /100WBC PT 13.3 H (10.0-13.1) SEC INR 1.2 H (0.9-1.1) APTT 30.5 (26.0-36.4) SEC Sodium (135-145) mmol/L Potassium (3.3-5.1) mmol/L Chloride (96-108) mmol/L Carbon Dioxide (22-29) mmol/L Anion Gap (12-20) BUN (9-16) mg/dL Creatinine (0.5-1.4) mg/dL Estim Creat Clear Calc Estimated GFR Random Glucose (60-115) mg/dL Lactic Acid 1.4 (0.5-2.0) mmol/L Calcium (8.4-10.2) mg/dL Total Bilirubin (0.0-1.0) mg/dL 10/08/22 Range/Units 14:46 WBC (4.8-10.8) X10*3/uL RBC (4.60-5.80) X10*6/uL Hgb (14.0-18.0) g/dl Hct (42.0-52.0) % MCV (80.0-98.0) fL MCH (27.0-33.0) pg MCHC (31.0-36.0) g/dl RDW (11.0-16.0) % Plt Count (160-400) X10*3/uL MPV (9.4-12.4) fL Immature Gran % (Auto) (0.0-0.4) % Neut % (Auto) (45-73) % Lymph % (Auto) (20-40) % [place] % (Auto) (2-11) % Eos % (Auto) (0-4) % Baso % (Auto) (0-2) % Lymph # (Auto) (1.2-4.9) X10*3/uL [place] # (Auto) (0.1-1.2) X10*3/uL Eos # (Auto) (0.0-0.4) X10*3/uL Baso # (Auto) (0.0-0.2) X10*3/uL Abs Immat Gran (auto) (0.00-0.03) X10*3/uL Absolute Neuts (auto) (2.0-8.3) x10*3/uL Absolute Nucleated RBC (0.0-0.012) X10*3/uL Nucleated RBC % (auto) (0.0-0.2) /100WBC PT (10.0-13.1) SEC INR (0.9-1.1) APTT (26.0-36.4) SEC Sodium 141 (135-145) mmol/L Potassium 4.1 (3.3-5.1) mmol/L Chloride 104 (96-108) mmol/L Carbon Dioxide 25 (22-29) mmol/L Anion Gap 16 (12-20) BUN 13 (9-16) mg/dL Creatinine 0.94 (0.5-1.4) mg/dL Estim Creat Clear Calc 132.7 Estimated GFR > 60 Random Glucose 111 (60-115) mg/dL Lactic Acid (0.5-2.0) mmol/L Calcium 9.2 (8.4-10.2) mg/dL Total Bilirubin 1.3 H (0.0-1.0) mg/dL Imaging Data Left lower extremities CT: Attestation: I personally reviewed and interpreted this imaging study as follows: Radiologist's impression: *? Subcutaneous fat stranding and fluid along the distal thigh laterally and posteriorly, along the knee laterally and proximal lower extremity, compatible with cellulitis. No drainable collection. *? No soft tissue gas to suggest necrotizing fasciitis. *? No joint effusion to suggest septic arthritis. *? No evidence of osteomyelitis. Discharge Plan Discharge Clinical Impression: Cellulitis Patient Disposition: Admitted As Inpatient
[2022-10-08] MEDS: 0.9 % Sodium Chloride 2,925.66 ML 2925.66 ML IVCONT (15:44)
[2022-10-08] MEDS: iohexoL 350 MG/ML 100 ML INFUS..BTL IV (16:28)
--- NOTE | 2022-10-08 16:59 | PC.NURSE ---
PT A DIFFICULT POKE. TWO IVS PLACED - 20G IN EACH HAND. SLOW IVF INFUSION BOLUS CONTINUES TO STOP, REQUIRED FOR SLOW ADMINISTRATION. IV ABX LATE ADMIN DUE TO THIS REASON
--- NOTE | 2022-10-08 17:00 | PM.IMHP ---
History of Present Illness Date of Service: 10/08/22 Attending physician on admission: Beckie Sandoval Chief Complaint: Left like redness and swelling 37-year-old gentleman with no significant past medical history presented to [facility] with 3 day history of left leg redness and swelling patient noted a pimple 3 days ago that popped and he noticed gradual worsening of redness warmth and swelling of left leg since yesterday he developed fever on and off up to 102,, patient denies insect bite, no spider bite, no injury, no rash, no trauma, in the emergency room patient noted to be febrile, tachycardic with elevated WBC count, x-ray left knee showed no acute abnormality patient underwent for CT leg report is pending patient treated in the emergency room with IV fluids, IV Zosyn and doxycycline and now being admitted to [facility] with a diagnosis of acute left leg cellulitis involving the left leg behind knee, extending towards the left thigh. 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, no dizziness CVS no chest pain, no palpitation GI positive nausea, no abdominal pain, no vomiting, no diarrhea Yes all other systems are reviewed and are negative [facility] Medical History No known health problems Pertinent family history: Both parents alive and healthy with no medical issues Social History Household Members: Spouse Housing: Apartment Do you presently have visiting nurse or other home services: No Alcohol intake: never Patient Tobacco Use Status: Current everyday Tobacco user Tobacco use type: Cigarette Cigarettes Per Day: 2 Smoked in Last 30 Days: Yes e-Cigarette/Vaping Use: Currently Using Patient Interested in Nicotine Replacement: No Patient Given Instructions on How to Stop Smoking: No Use of substances other than those prescribed or required for medical reasons: No Currently Displaying Signs/Symptoms of Drug Intoxication Withdrawal: No Any prior treatment program specific to substance use: No Have you been hit, kicked, punched, or otherwise hurt by someone within the past year? If so, by whom?: No Do you feel safe in your current relationship?: No Is there a partner from a previous relationship who is making you feel unsafe now?: No Are you made to feel afraid or neglected: No Advance Directives: No Advance Directives Information Provided: No Do you have thoughts of harming others: None Do you have a plan to hurt others: No Plan Recently lost weight without trying: No How much weight loss: Not applicable Eating poorly because of decreased appetite: No Nutrition screen score: 0 Nutrition Risks: No Nutritional Risk Poor oral hygiene: No service: No Current occupational status: employed Meds Allergies Allergy/AdvReac Type Severity Reaction Status Date / Time Penicillins [PCN] Allergy Unknown Verified 05/16/22 19:36 Active Medications: Current Medications Acetaminophen (Acetaminophen 325 Mg Tablet) 650 mg PO Q6H PRN PRN Reason: Pain, Mild (Pain Scale 1-3) Doxycycline Hyclate 100 mg/ (Sodium Chloride) 250 mls @ 166.67 mls/hr IV ONCE ONE Stop: 10/08/22 17:05 Vancomycin HCl (Vancomycin/Ns) 2,000 mg in 520 mls @ 260 mls/hr IV ONCE ONE Stop: 10/08/22 18:11 Dextrose/Sodium Chloride (D5ns) 1,000 mls @ 100 mls/hr IVCONT .Q10H PRAVEEN Vancomycin HCl 1,000 mg/ (Sodium Chloride) 270 mls @ 270 mls/hr IV Q12H [facility]EN Doxycycline Hyclate 100 mg/ (Sodium Chloride) 250 mls @ 166.67 mls/hr IV Q12H [facility]EN Melatonin (Melatonin 3 Mg Tablet) 3 mg PO BEDTIME PRN PRN Reason: Insomnia Ondansetron HCl (Ondansetron Hcl 4 Mg/2 Ml Vial) 4 mg IVPUSH Q8H PRN PRN Reason: Nausea and Vomiting Pharmacy Consult (Consult Rx Vancomycin Dosing) 1 each MISCELLANE DAILY PRN PRN Reason: Consult order Pharmacy Consult (Consult Rx Vancomycin Dosing) 1 each MISCELLANE DAILY PRN PRN Reason: Consult order Sodium Chloride (0.9 % Sodium Chloride Flush 3 Ml Syringe) 3 ml IVFLUSH QSHIFT [facility] Home Medications Medication Instructions Recorded Confirmed Last Taken Type No Known Home Meds 10/08/22 10/08/22 Unknown History Physical Exam Vital Signs and Narrative: Vital Signs: Last Vital Signs Temp 100.5 F H 10/08/22 14:25 Pulse 110 H 10/08/22 14:25 Resp 18 10/08/22 14:25 BP 123/76 10/08/22 14:25 Pulse Ox 100 10/08/22 14:25 O2 Del Method 10/08/22 14:25 BMI result Body Mass Index 29.1 Const: Other: General awake alert x3, in no acute distress. Anicteric sclera Neck supple no JVD. CVS regular rate rhythm, Respiratory lungs clear to auscultation, no respiratory distress, no wheeze, no rhonchi. Gastrointestinal abdomen soft, nontender, bowel sounds audible, no guarding , no rigidity. Extremities right leg no edema., left lower extremity behind left knee small open area with surrounding induration, no fluctuation with redness extending from mid calf to left upper thigh Neuro nonfocal patient moving all 4 extremity speech clear. Skin no rash Psych appropriate affect Results Labs CBC and Chem 7: 10/08/22 14:46 10/09/22 07:03 Labs: Laboratory Results - last 24 hr 10/08/22 10/08/22 10/08/22 14:46 14:46 14:46 MCV 87.3 MCH 29.7 MCHC 34.0 RDW 13.1 Plt Count 233 MPV 9.7 Immature Gran % (Auto) 0.8 H Neut % (Auto) 84.4 H Lymph % (Auto) 7.6 L [place] % (Auto) 6.8 Eos % (Auto) 0.2 Baso % (Auto) 0.2 Lymph # (Auto) 1.4 [place] # (Auto) 1.2 Eos # (Auto) 0.0 Baso # (Auto) 0.0 Abs Immat Gran (auto) 0.15 H Absolute Neuts (auto) 15.1 H Absolute Nucleated RBC 0.000 Nucleated RBC % (auto) 0.0 PT 13.3 H INR 1.2 H APTT 30.5 Anion Gap Estim Creat Clear Calc Estimated GFR Random Glucose Lactic Acid 1.4 Calcium Total Bilirubin 10/08/22 14:46 MCV MCH MCHC RDW Plt Count MPV Immature Gran % (Auto) Neut % (Auto) Lymph % (Auto) [place] % (Auto) Eos % (Auto) Baso % (Auto) Lymph # (Auto) [place] # (Auto) Eos # (Auto) Baso # (Auto) Abs Immat Gran (auto) Absolute Neuts (auto) Absolute Nucleated RBC Nucleated RBC % (auto) PT INR APTT Anion Gap 16 Estim Creat Clear Calc 132.7 Estimated GFR > 60 Random Glucose 111 Lactic Acid Calcium 9.2 Total Bilirubin 1.3 H Imaging Radiologist's Impressions: Impressions Knee X-Ray 10/08/22 15:17 IMPRESSION: Normal left knee. Assessment and Plan (1) Cellulitis: Status: Acute (2) Sepsis: Status: Acute Plan 37-year-old gentleman with no significant past medical history presented to [facility] with 3 days of left leg redness swelling warmth associated with fever and chills patient noted to have an area of in duration behind left knee with surrounding cellulitis. Sepsis due to left leg cellulitis Patient noted to be tachycardic, with leukocytosis and low-grade fever, normal lactic acid Will place on IV vancomycin and doxycycline, follow blood cultures x2, follow CBC Will review CT left knee, will obtain surgery consult if noted to have an abscess Apply warm compresses to area of in duration, close clinical follow-up DVT prophylaxis low risk with early ambulation In my clinical judgment patient will need to to inpatient night stay in the hospital for IV antibiotic and possible drainage of abscess. Quality Stroke Does the patient have a stroke diagnosis?: No VTE Prior VTE?: No VTE Risk Level:: Medical - low VTE Device Contraindication: Treatment Not Indicated VTE Drug Contraindication: Treatment Not Indicated
[2022-10-08 17:16] LABS: COVID-19 Test Negative (Negative)
--- NOTE | 2022-10-08 18:03 | PHA.MEDREC ---
Pharmacy Consult ? Medication Reconciliation Pharmacy has completed the medication reconciliation.
--- NOTE | 2022-10-08 18:13 | PC.NURSE ---
required for provider to place 18G IV in pt RAC for abx and fluid management
[2022-10-08 18:15] VITALS: BP 119/71; PULSE 107; O2SAT 96
[2022-10-08 18:16] VITALS: BP 120/71; PULSE 108; RESP 18; O2SAT 97
[2022-10-08 18:18] VITALS: TEMP 38.2
[2022-10-08] MEDS: Acetaminophen 325 MG TABLET 650 MG PO (18:29)
--- NOTE | 2022-10-08 18:44 | PHA.PROG ---
Admission Date/Time: October 08, 2022 16:47 Indication: Skin and Skin structure Weight in k.522 kg Adjusted body weight in K.569 [place] body weight in K.9 Obesity Dosing Indication % IBW: Obese Serum Creatinine - Last 168 Hours 10/08/22 14:46 Creatinine 0.94 Estimated CrCl and GFR - Last 168 Hours 10/08/22 14:46 Estim Creat Clear Calc 132.7 Estimated GFR > 60 Vancomycin Loading Dose: 2000 mg Current Vancomycin Dosing Regimen: 1000 mg Q12h Vancomycin Monitoring using AUC goal of 400 - 600 range with trough as surrogate marker: 445 mg/L/hr Date and Time for next Vancomycin Level to be drawn: 10/10 @0600 Pharmacist Comments on Vancomycin Plan: Patient less than 65 yrs old, with CrCl 132.7, Q12H dosing as patient should clear medication well. Received a proper load dose. Obese model used. Vancomycin dosing will take advantage of [employer] as a clinical decision support tool that uses Bayesian modeling to calculate individual patient's pharmacokinetic parameters and forecast the patient's drug concentration time course with the target goal AUC 24 range of 400 - 600 mg/L/hr.
--- NOTE | 2022-10-08 19:19 | PC.NURSE ---
pt a difficult poke, IV fluids were not infusing appropriately for sepsis work up, IV ABX on hold while placement for U/S guided line placed by MD. IV ABX will be late due to late fluids, fragile lines in FRANK hands (20G), 18G placed by dr cain in RAC
[2022-10-08] MEDS: Doxycycline Hyclate 100 MG in 0.9 % Sodium Chloride 250 ML 166.67 MG IV (20:22)
[2022-10-08 20:25] VITALS: BP 105/57; PULSE 104; RESP 20; TEMP 37.3; O2SAT 95
[2022-10-08] MEDS: Dextrose 5 % and 0.9 % NaCl 1,000 ML 100 ML IVCONT (23:02)
--- NOTE | 2022-10-08 23:06 | PC.NURSE ---
DRNS due prior to this RN's shift. due to being behind on provider order antibiotics and fluid resuscitation
[2022-10-08] MEDS: ondansetron HCL 4 MG/2 ML VIAL IVPUSH (23:12)
--- NOTE | 2022-10-08 23:13 | PC.NURSE ---
pt had an episode of vomiting. this RN medicated pt with PRN Zofran according to MAR
[2022-10-09] VITALS (9 sets, daily range): BP systolic 92–123; BP diastolic 45–71; PULSE 70–96; RESP 16–19; TEMP 36.5–37.7; O2SAT 93–99; BMI 30.8
[2022-10-09] MEDS: Acetaminophen 325 MG TABLET 650 MG PO ×3 (04:26→23:32)
[2022-10-09] MEDS: vancomycin HCL 1,000 MG in 0.9 % Sodium Chloride 250 ML 270 MG IV ×2 (07:21→19:15)
[2022-10-09 11:17] LABS: Creatinine Clr Calc Pharmacy 168.3; Estimated Glomerular Filt Rate > 60
--- NOTE | 2022-10-09 12:04 | MHC.CM.PN ---
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 ANTIC D/C HOME W/ORAL ABX AND PT TO ARRANGE TRANSPORT
--- NOTE | 2022-10-09 12:28 | HO.PM.IMPN ---
Subjective Subjective Date of Service: 10/09/22 Interval History: had fever chills, headache, nausea and vomiting last night, this morning feeling better no fever chills this morning no further bout of nausea and vomiting, complaining of persistent redness swelling and pain left lower extremity. Review of Systems CVS no chest pain no palpitation Respiratory no cough, no shortness Of breath no urgency, no frequency Review of Systems: Yes all other systems are reviewed and are negative Physical Exam Vital Signs: Vital Signs: Last Vital Signs Temp 98.2 F 10/09/22 11:18 Pulse 78 10/09/22 11:18 Resp 17 10/09/22 11:18 BP 108/62 10/09/22 11:18 Pulse Ox 97 10/09/22 11:18 O2 Del Method 10/09/22 11:18 BMI result Body Mass Index 30.8 Const: Other: General awake aler t x3, in no acute distress.? Anicter ic sclera Neck? coronado pple no JVD. CVS? regular rate rhyth m, Respiratory myah gs clear to auscul tation, no respira tory distress, no wheeze, no rhonchi . Gastrointestinal abdomen soft, non tender, bowel antolin nds audible,? no g uarding , no rigid ity. right leg no edema., left lower extremity behind left knee small op en area with surro unding induration, no fluctuation, r edness and swellin g improving Neuro nonfocal ,moving all 4 extremity ,s peech clear. Skin no rash Psych appr opriate affect Objective Data Active Medications Acetaminophen (Acetaminophen 325 Mg Tablet) 650 mg PO Q6H PRN PRN Reason: Pain, Mild (Pain Scale 1-3) Last Admin: 10/09/22 04:26 Dose: 650 mg Documented By: LUIS Vancomycin HCl 1,000 mg/ (Sodium Chloride) 270 mls @ 270 mls/hr IV Q12H [facility] Last Infusion: 10/09/22 08:26 Dose: 0 mls/hr Documented By: AGATHA Melatonin (Melatonin 3 Mg Tablet) 3 mg PO BEDTIME PRN PRN Reason: Insomnia Ondansetron HCl (Ondansetron Hcl 4 Mg/2 Ml Vial) 4 mg IVPUSH Q8H PRN PRN Reason: Nausea and Vomiting Last Admin: 10/08/22 23:12 Dose: 4 mg Documented By: GUY Pharmacy Consult (Consult Rx Vancomycin Dosing) 1 each MISCELLANE DAILY PRN PRN Reason: Consult order Pharmacy Consult (Consult Rx Vancomycin Dosing) 1 each MISCELLANE DAILY PRN PRN Reason: Consult order Sodium Chloride (0.9 % Sodium Chloride Flush 3 Ml Syringe) 3 ml IVFLUSH QSHIFT [facility] Last Admin: 10/09/22 07:14 Dose: Not Given Documented By: AGATHA Non-Admin Reason: IV Running Labs CBC & Chem 7: 10/08/22 14:46 10/09/22 07:03 Labs: Laboratory Results - last 24 hr 10/08/22 10/08/22 10/08/22 14:46 14:46 14:46 MCV 87.3 MCH 29.7 MCHC 34.0 RDW 13.1 Plt Count 233 MPV 9.7 Immature Gran % (Auto) 0.8 H Neut % (Auto) 84.4 H Lymph % (Auto) 7.6 L [place] % (Auto) 6.8 Eos % (Auto) 0.2 Baso % (Auto) 0.2 Lymph # (Auto) 1.4 [place] # (Auto) 1.2 Eos # (Auto) 0.0 Baso # (Auto) 0.0 Abs Immat Gran (auto) 0.15 H Absolute Neuts (auto) 15.1 H Absolute Nucleated RBC 0.000 Nucleated RBC % (auto) 0.0 PT 13.3 H INR 1.2 H APTT 30.5 Anion Gap Estim Creat Clear Calc Estimated GFR Random Glucose Lactic Acid 1.4 Calcium Total Bilirubin COVID-19 ([facility]) COVID-19 Clin Com 10/08/22 10/08/22 10/09/22 14:46 16:58 07:03 MCV MCH MCHC RDW Plt Count MPV Immature Gran % (Auto) Neut % (Auto) Lymph % (Auto) [place] % (Auto) Eos % (Auto) Baso % (Auto) Lymph # (Auto) [place] # (Auto) Eos # (Auto) Baso # (Auto) Abs Immat Gran (auto) Absolute Neuts (auto) Absolute Nucleated RBC Nucleated RBC % (auto) PT INR APTT Anion Gap 16 Estim Creat Clear Calc 132.7 168.3 Estimated GFR > 60 > 60 Random Glucose 111 Lactic Acid Calcium 9.2 Total Bilirubin 1.3 H COVID-19 ([facility]) Negative COVID-19 Clin Com See Note Assessment and Plan (1) Sepsis: Status: Acute (2) Cellulitis: Status: Acute Plan 37-year-old gentleman with no significant past medical history presented to [facility] with 3 days of left leg redness swelling warmth associated with fever and chills patient noted to have an area of in duration behind left knee with surrounding cellulitis. Sepsis due to left leg cellulitis Less redness and swelling left lower extremity, tachycardia resolved, no fevers Continue IV vancomycin day 2, blood cultures x2 pending, follow CBC CT left knee, showed Subcutaneous fat stranding and fluid along the distal thigh,laterally and posteriorly, along the knee laterally and proximal lower extremity, compatible with cellulitis.?no osteomyelitis, no necrotizing fasciitis no septic arthritis Continue close clinical follow-up DVT prophylaxis low risk with early ambulation In my clinical judgment patient will need continued inpatient stay in the hospital patient's stay in the hospital for significant left leg cellulitis requiring IV antibiotic Quality Stroke Does the patient have a stroke diagnosis?: No VTE Prior VTE?: No VTE Risk Level:: Medical - low VTE Device Contraindication: Treatment Not Indicated VTE Drug Contraindication: Treatment Not Indicated
[2022-10-09] MEDS: 0.9 % Sodium Chloride Flush 3 ML SYRINGE IVFLUSH ×3 (14:35→23:34)
[2022-10-09] MEDS: ondansetron HCL 4 MG/2 ML VIAL IVPUSH (19:12)
[2022-10-09] MEDS: Melatonin 3 MG TABLET PO (23:33)
[2022-10-10 04:00] VITALS: BP 115/70; PULSE 72; RESP 18; TEMP 36.6; O2SAT 100
[2022-10-10 06:11] LABS: Creatinine Clr Calc Pharmacy 168.3; Estimated Glomerular Filt Rate > 60
[2022-10-10 06:11] LABS: Vancomycin Trough 4.6 mcg/mL (10.0-20.0)
--- NOTE | 2022-10-10 06:52 | HE.PHANOTE ---
Vancomycin Dosing Addendum Patient trough 4.6 today. Renal function stable. Will increase dose to 1250 mg Q8H. New expected AUC 535 with a trough of 10.8. Bonnie Melchor, LaineD
[2022-10-10 07:17] VITALS: BP 115/50; PULSE 68; RESP 16; TEMP 36.8; O2SAT 99
[2022-10-10] MEDS: 0.9 % Sodium Chloride Flush 3 ML SYRINGE IVFLUSH ×3 (07:49→19:22)
[2022-10-10] MEDS: vancomycin HCL 1,250 MG in 0.9 % Sodium Chloride 250 ML 166.67 MG IV ×2 (07:49→19:22)
[2022-10-10 07:51] LABS: Hematocrit 40.4 % (42.0-52.0); Hemoglobin 13.6 g/dl (14.0-18.0); Mean Corpuscular HGB Conc 33.7 g/dl (31.0-36.0); Mean Corpuscular Hemoglobin 29.6 pg (27.0-33.0); Mean Corpuscular Volume 87.8 fL (80.0-98.0); Mean Platelet Volume 10.1 fL (9.4-12.4); Platelet Count 234 X10*3/uL (160-400); Red Cell Distribution Width 13.1 % (11.0-16.0); White Blood Count 11.7 X10*3/uL (4.8-10.8)
[2022-10-10 10:56] VITALS: BP 121/69; PULSE 87; RESP 17; TEMP 36.3; O2SAT 96
--- NOTE | 2022-10-10 12:54 | P.PNIM_ITS ---
Subjective Subjective Date of Service: 10/10/22 Interval History: [place] feverish last night, had no temperature, complaining of persistent pain left leg, denies nausea vomiting no abdominal pain tolerating diet, no headache, no dizziness no acute events overnight. Review of Systems Review of Systems: Yes all other systems are reviewed and are negative Physical Exam Vital Signs: Vital Signs: Last Vital Signs Temp 97.3 F 10/10/22 10:56 Pulse 87 10/10/22 10:56 Resp 17 10/10/22 10:56 BP 121/69 10/10/22 10:56 Pulse Ox 96 10/10/22 10:56 O2 Del Method 10/10/22 10:56 BMI result Body Mass Index 30.8 Const: Other: General awake alert x3, in no acute distress.? Anicteric sclera Neck? supple no JVD. CVS? regular rate rhythm, Respiratory lungs clear to auscultation, no respiratory distress, no wheeze, no rhonchi. Gastrointestinal abdomen soft, nontender, bowel sounds audible,? no guarding , no rigidity. Extremities right leg no edema., left lower extremity behind left knee noted to have a puss point with surrounding induration, with less redness than before Neuro nonfocal patient moving all 4 extremity speech clear. Skin no rash Psych appropriate affect Objective Data Active Medications Acetaminophen (Acetaminophen 325 Mg Tablet) 650 mg PO Q6H PRN PRN Reason: Pain, Mild (Pain Scale 1-3) Last Admin: 10/09/22 23:32 Dose: 650 mg Documented By: BRIDGET Vancomycin HCl 1,250 mg/ (Sodium Chloride) 250 mls @ 166.667 mls/hr IV Q12H [facility] Last Infusion: 10/10/22 09:26 Dose: 0 mls/hr Documented By: AGATHA Melatonin (Melatonin 3 Mg Tablet) 3 mg PO BEDTIME PRN PRN Reason: Insomnia Last Admin: 10/09/22 23:33 Dose: 3 mg Documented By: BRIDGET Ondansetron HCl (Ondansetron Hcl 4 Mg/2 Ml Vial) 4 mg IVPUSH Q8H PRN PRN Reason: Nausea and Vomiting Last Admin: 10/09/22 19:12 Dose: 4 mg Documented By: BRIDGET Pharmacy Consult (Consult Rx Vancomycin Dosing) 1 each MISCELLANE DAILY PRN PRN Reason: Consult order Pharmacy Consult (Consult Rx Vancomycin Dosing) 1 each MISCELLANE DAILY PRN PRN Reason: Consult order Sodium Chloride (0.9 % Sodium Chloride Flush 3 Ml Syringe) 3 ml IVFLUSH QSHIFT [facility] Last Admin: 10/10/22 07:49 Dose: 3 ml Documented By: AGATHA Labs CBC & Chem 7: 10/10/22 07:44 10/10/22 05:42 Labs: Laboratory Results - last 24 hr 10/10/22 10/10/22 10/10/22 05:42 05:43 07:44 MCV 87.8 MCH 29.6 MCHC 33.7 RDW 13.1 Plt Count 234 MPV 10.1 Absolute Nucleated RBC 0.000 Nucleated RBC % (auto) 0.0 Estim Creat Clear Calc 168.3 Estimated GFR > 60 Vancomycin Trough 4.6 L Microbiology Microbiology Results: Microbiology 10/08/22 14:46 Blood Culture - Preliminary Blood - Venous No growth after 24 hours. 10/08/22 14:46 Blood Culture - Preliminary Blood - Venous No growth after 24 hours. Assessment and Plan (1) Sepsis: Status: Acute (2) Cellulitis: Status: Acute Plan 37-year-old gentleman with no significant past medical history presented to [facility] with 3 days of left leg redness swelling warmth associated with fever and chills patient noted to have an area of in duration behind left knee with surrounding cellulitis. Sepsis due to left leg cellulitis Less redness and swelling left lower extremity, tachycardia resolved, no fevers, noted to have passed point behind left knee with surrounding in duration question early abscess, will obtain surgical consult Continue IV vancomycin day 3, blood cultures x2 negative, WBC improved to 11.7, stable creatinine CT left knee, showed Subcutaneous fat stranding and fluid along the distal thigh,laterally and posteriorly, along the knee laterally and proximal lower extremity, compatible with cellulitis.?no osteomyelitis, no necrotizing fasciitis no septic arthritis Continue close clinical follow-up DVT prophylaxis low risk with early ambulation In my clinical judgment patient will need continued inpatient stay in the hospital patient's stay in the hospital for significant left leg cellulitis, developing early abscess, requiring IV antibiotics Quality Stroke Does the patient have a stroke diagnosis?: No VTE Prior VTE?: No VTE Risk Level:: Medical - low VTE Device Contraindication: Treatment Not Indicated VTE Drug Contraindication: Treatment Not Indicated
[2022-10-10] MEDS: Lidocaine HCl 1 % 20 ML VIAL 30 ML INFILTRATI (13:29)
[2022-10-10] MEDS: Morphine Sulfate 2 MG/ML CARTRIDGE IVPUSH (13:40)
--- NOTE | 2022-10-10 13:54 | P.CONGS_ITS ---
History of Present Illness Consult details Consult date: 10/10/22 <NIR Sexton Last Filed: 10/10/22 14:41> Requesting physician: Beckie Sandoval <NIR Sexton Last Filed: 10/10/22 14:41> Narrative: 37 year old male with no significant past medical history who presented to the ED with 3 day history of left leg redness and swelling. He noticed a pimple on his left leg on /Saturday that he scratched and it opened. Since then, he noticed gradual worsening of redness with warmth and swelling. He developed fever with tmax of 102. He denies insect bites, no spider bites, injury or trauma to the area. He denies rash, nausea, vomiting, diarrhea. In the ED he had a leukocytosis of 17. Xray of the left knee showed no acute abnormality and he subsequently had CT leg which showed subcutaneous fat stranding and fluid along the distal thigh laterally and posteriorly and along the knee laterally and proximal lower extremity without fluid collection or gas. He was admitted to the hospitalist service for treatment of the left leg cellulitis and started on IV vanco. He has improved a little since admission but WBC count remains mildly elevated. Surgery was consulted to evaluate for possible abscess. 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 <NIR Sexton Last Filed: 10/10/22 14:41> Review of Systems Constitutional: Constitutional: Reports as per HPI, Reports fever(s) and Denies malaise <NIR Sexton Last Filed: 10/10/22 14:41> ENT: Denies dizziness <NIR Sexton Last Filed: 10/10/22 14:41> Cardiovascular: Cardiovascular: Denies chest pain, Denies palpitations and Denies dyspnea <NIR Sexton Last Filed: 10/10/22 14:41> Respiratory: Respiratory: Denies dyspnea <NIR Sexton Filed: 10/10/22 14:41> Gastrointestinal: Gastrointestinal: Denies diarrhea, Denies nausea and Denies vomiting <NIR Sexton Last Filed: 10/10/22 14:41> Integumentary/Breasts: Skin/Breast: Reports as per HPI, Reports swelling, Reports erythema and Denies rash <Lisa Espana PA-C Last Filed: 10/10/22 14:41> Neurologic: Denies dizziness <Lisa Epsana PA-C - Last Filed: 10/10/22 14:41> Endocrine: Endocrine: Denies palpitations <Lisa Espana PA-C Last Filed: 10/10/22 14:41> [facility] Past Medical History Medical History: Medical History No known health problems <Lisa Espana PA-C Last Filed: 10/10/22 14:41> Social History Social History: Social History Household Members: Spouse Housing: Apartment Do you presently have visiting nurse or other home services: No Alcohol intake: never Patient Tobacco Use Status: Current everyday Tobacco user Tobacco use type: Cigarette Cigarettes Per Day: 2 Smoked in Last 30 Days: Yes e-Cigarette/Vaping Use: Currently Using Patient Interested in Nicotine Replacement: No Patient Given Instructions on How to Stop Smoking: No Use of substances other than those prescribed or required for medical reasons: No Currently Displaying Signs/Symptoms of Drug Intoxication Withdrawal: No Any prior treatment program specific to substance use: No Have you been hit, kicked, punched, or otherwise hurt by someone within the past year? If so, by whom?: No Do you feel safe in your current relationship?: No Is there a partner from a previous relationship who is making you feel unsafe now?: No Are you made to feel afraid or neglected: No Advance Directives: No Advance Directives Information Provided: No Do you have thoughts of harming others: None Do you have a plan to hurt others: No Plan Recently lost weight without trying: No How much weight loss: Not applicable Eating poorly because of decreased appetite: No Nutrition screen score: 0 Nutrition Risks: No Nutritional Risk Poor oral hygiene: No service: No Current occupational status: employed <NIR Sexton Last Filed: 10/10/22 14:41> Meds Allergies/Adverse reactions: Allergies Allergy/AdvReac Type Severity Reaction Status Date / Time Penicillins [PCN] Allergy Unknown Verified 05/16/22 19:36 <NIR Sexton Last Filed: 10/10/22 14:41> Active Medications: Current Medications Acetaminophen (Acetaminophen 325 Mg Tablet) 650 mg PO Q6H PRN PRN Reason: Pain, Mild (Pain Scale 1-3) Last Admin: 10/09/22 23:32 Dose: 650 mg Vancomycin HCl 1,250 mg/ (Sodium Chloride) 250 mls @ 166.667 mls/hr IV Q12H COUNT INCLUDES [facility] Last Infusion: 10/10/22 09:26 Dose: Infused Melatonin (Melatonin 3 Mg Tablet) 3 mg PO BEDTIME PRN PRN Reason: Insomnia Last Admin: 10/09/22 23:33 Dose: 3 mg Ondansetron HCl (Ondansetron Hcl 4 Mg/2 Ml Vial) 4 mg IVPUSH Q8H PRN PRN Reason: Nausea and Vomiting Last Admin: 10/09/22 19:12 Dose: 4 mg Pharmacy Consult (Consult Rx Vancomycin Dosing) 1 each MISCELLANE DAILY PRN PRN Reason: Consult order Pharmacy Consult (Consult Rx Vancomycin Dosing) 1 each MISCELLANE DAILY PRN PRN Reason: Consult order Sodium Chloride (0.9 % Sodium Chloride Flush 3 Ml Syringe) 3 [facility] Last Admin: 10/10/22 07:49 Dose: 3 ml <Lisa Espana PA-C - Last Filed: 10/10/22 14:41> Home medications: Home Medications Medication Instructions Recorded Confirmed Last Taken Type No Known Home Meds 10/08/22 10/08/22 Unknown History <NIR Sexton Last Filed: 10/10/22 14:41> Physical Exam Vital Signs: Vital Signs: Last Vital Signs Temp 97.3 F 10/10/22 10:56 Pulse 87 10/10/22 10:56 Resp 17 10/10/22 10:56 BP 121/69 10/10/22 10:56 Pulse Ox 96 10/10/22 10:56 O2 Del Method 10/10/22 10:56 BMI result Body Mass Index 30.8 <NIR Sexton Last Filed: 10/10/22 14:41> Const: General: comfortable, no acute distress and alert <Lisa Sheehankelsey NIR Ag Last Filed: 10/10/22 14:41> Orientation/consciousness: patient oriented x3 <Lisa Sheehankelsey NIR Ag Last Filed: 10/10/22 14:41> Resp: Effort & Inspection: normal respiratory effort <Lisa Sheehandeau NIR Ag Last Filed: 10/10/22 14:41> Cardio: Rate: regular rate <Lisa Sheehandeau ELAN Ancelmo Last Filed: 10/10/22 14:41> Skin: Other: left lower extremity- edema and erythema of posterior knee extending proximally into thigh and distally into calf, 1cm bulla of lateral aspect of posterior knee with large amount of fluctuance underneath, no crepitus <Lisa Sheehankelsey ELAN Ancelmo Last Filed: 10/10/22 14:41> Neuro: General: patient oriented x3 <Lisa Sheehankelsey ELAN Ancelmo Last Filed: 10/10/22 14:41> Extrem: General: Yes no clubbing, cyanosis or edema <Lisa Sheehankelsey ELAN Ancelmo Last Filed: 10/10/22 14:41> Results Labs Result diagrams: : 10/10/22 07:44 10/10/22 05:42 <Lisa Sheehankelsey NIR Ag Last Filed: 10/10/22 14:41> Labs: Abnormal lab results 10/10/22 10/10/22 Range/Units 05:43 07:44 WBC 11.7 H (4.8-10.8) X10*3/uL Hgb 13.6 L (14.0-18.0) g/dl Hct 40.4 L (42.0-52.0) % Vancomycin Trough 4.6 L (10.0-20.0) mcg/mL Short CBC 10/10/22 Range/Units 07:44 WBC 11.7 H (4.8-10.8) X10*3/uL Hgb 13.6 L (14.0-18.0) g/dl Hct 40.4 L (42.0-52.0) % Plt Count 234 (160-400) X10*3/uL BMP 10/10/22 05:42 Creatinine 0.76 All other labs normal. <Lisa Espana PA-C - Last Filed: 10/10/22 14:41> Assessment and Plan (1) Cellulitis: Status: Acute <Lisa Espana PA-C - Last Filed: 10/10/22 14:41> (2) Abscess of left lower leg: Status: Acute <Lisa Espana PA-C - Last Filed: 10/10/22 14:41> History was reviewed There was note of a large induration on the posterolateral aspect of the knee area I explained to him it would be best to proceed with I&D. He understood the t echnique of the procedure as well as the risks, benefits, and alternatives. He was placed in a right lateral decubitus position. The area of the abscess on the left leg was prepped and draped. Lidocaine 1% was used for local anesthesia. I made an incision on the skin overlying this induration using blade 11 this was carried down through the full-thickness of the skin until an abscess cavity was entered. Large amounts of pus was drained. Cultures were taken. There was a large cavity we expressed as much of the contents by using the surrounding area. I applied a light packing with iodoform. Dressings were applied. The procedure was completed. He tolerated procedure well. There were no immediate complications. His culture should be followed up. We will see him while he is in the hospital. He was seen and examined independently <Vito Arevalo MD - Last Filed: 10/10/22 14:54> 37 year old male admitted for left lower leg cellulitis without appreciable collection on CT scan. He is on IV vanco. He does have fluctuance of the posterior knee just beneath the bulla extending proximally/laterally with surrounding erythema consistent with an abscess. It was discussed with him that this will need to be drained and can be performed at bedside under local anesthesia now. He is in agreement. Cont IV abx. All questions were answered. Continue daily wound care following the drainage, will remove the packing in 1-2 days. <Lisa Espana PA-C - Last Filed: 10/10/22 14:41> Procedures Date of Service Date of Service: 10/10/22 <Lisa Espana PA-C Last Filed: 10/10/22 14:41> Abscess I/D Consent for Procedure: Elective - informed consent obtained <Lisa Espana PA-C Ancelmo Last Filed: 10/10/22 14:41> Site: lower extremity <Lisa Espana PA-C Ancelmo Last Filed: 10/10/22 14:41> Side (if applicable): left <Lisa Espana PA-C Ancelmo Last Filed: 10/10/22 14:41> Sedation/analgesia: none <Lisa Espana PA-C Ancelmo Last Filed: 10/10/22 14:41> Anesthetic used: lidocaine 1% <Lisa Espana PA-C Ancelmo Filed: 10/10/22 14:41> Technique: incised with #11 blade (and probed with scissors ) <Lisa Espana PA-C Ancelmo Last Filed: 10/10/22 14:41> Packing used?: plain <Lisa Espana PA-C Ancelmo Last Filed: 10/10/22 14:41> Complications: other (none) <Lisa Espana PA-C Ancelmo Last Filed: 10/10/22 14:41> Additional comments: The patient was positioned right lateral decubitus on his bed. The left posterior knee was prepped with betadine. The area was infiltrated with 1% lidocaine. An incision was made with an 11 blade and then the incision was probed with scissors which released a large amount of purulent and fibrinous drainage. The area was then packed with 1/2 in plain packing and dressed with fluffs and kerlix roll and tape. He tolerated the procedure well. <Lisa Espana PA-C Ancelmo Last Filed: 10/10/22 14:41>
[2022-10-10 14:57] VITALS: BP 125/64; PULSE 86; RESP 18; TEMP 37.2; O2SAT 96
[2022-10-10] MEDS: Ketorolac Tromethamine 30 MG/ML VIAL IVPUSH (15:26)
--- NOTE | 2022-10-10 15:46 | MHC.CM.PN ---
EMR REVIEWED, PER HOSPITALIST PT WILL BE SEEN BY SURGICAL AND REMAIN INPT FOR IV ABX. CM MET W/PT AND GF AT BEDSIDE, PER PT REQUEST LETTER FAXED TO PT'S WORKPLACE AND CALL TO DOROTHY [phone], LETTER FAXED TO [phone] AND FAX CONFIRMATION RECEIVED.
[2022-10-10] MEDS: Morphine Sulfate 4 MG/ML CARTRIDGE IVPUSH (17:34)
[2022-10-10 19:14] VITALS: BP 118/73; PULSE 81; RESP 18; TEMP 36.4; O2SAT 94
[2022-10-10] MEDS: Melatonin 3 MG TABLET PO (22:20)
[2022-10-10 23:28] VITALS: BP 121/65; PULSE 65; RESP 17; TEMP 36.5; O2SAT 95
[2022-10-11 03:36] VITALS: BP 130/60; PULSE 70; RESP 17; TEMP 36.5; O2SAT 96
[2022-10-11 06:09] LABS: Creatinine Clr Calc Pharmacy 148.8; Estimated Glomerular Filt Rate > 60
[2022-10-11 06:11] LABS: Vancomycin Trough 7.6 mcg/mL (10.0-20.0)
--- NOTE | 2022-10-11 06:24 | HE.PHANOTE ---
RE ESSENCE PATIENT TROUGH RETURNED @7.6. TECHNICALLY, PATIENT HAS THERAPUETIC AUC >400, BUT INCREASING DOSE TO 1250MG Q8H. NEXT TROUGH DUE 10/12 @0600
[2022-10-11] MEDS: vancomycin HCL 1,250 MG in 0.9 % Sodium Chloride 250 ML 166.67 MG IV ×2 (06:57→14:15)
[2022-10-11] MEDS: 0.9 % Sodium Chloride Flush 3 ML SYRINGE IVFLUSH ×3 (06:58→22:17)
[2022-10-11 07:34] VITALS: BP 117/66; PULSE 77; RESP 18; TEMP 36.9; O2SAT 94
--- NOTE | 2022-10-11 08:46 | P.PNGS_ITS ---
Subjective Subjective Date of Service: 10/11/22 Interval history: I and D done at bedside yesterday says pain on the left leg is better no events reported Physical Exam Vital Signs: Vital Signs: Last Vital Signs Temp 98.4 F 10/11/22 07:34 Pulse 77 10/11/22 07:34 Resp 18 10/11/22 07:34 BP 117/66 10/11/22 07:34 Pulse Ox 94 10/11/22 07:34 O2 Del Method 10/11/22 07:34 BMI result Body Mass Index 30.8 Const: General: comfortable and no acute distress Resp: Effort & Inspection: normal respiratory effort Cardio: Rate: regular rate Extrem: Other: I and D site with much less induration, packing has been dislodged, minimal residual pus draining Objective Data Active Medications Acetaminophen (Acetaminophen 325 Mg Tablet) 650 mg PO Q6H PRN PRN Reason: Pain, Mild (Pain Scale 1-3) Last Admin: 10/09/22 23:32 Dose: 650 mg Documented By: BRIDGET Vancomycin HCl 1,250 mg/ (Sodium Chloride) 250 mls @ 166.667 mls/hr IV Q8H [facility] Last Admin: 10/11/22 06:57 Dose: 166.67 mls/hr Documented By: AGATHA Ketorolac Tromethamine (Ketorolac Tromethamine 30 Mg/Ml Vial) 30 mg IVPUSH Q6H PRN PRN Reason: Pain, Moderate (Pain Scale 4-6 Last Admin: 10/10/22 15:26 Dose: 30 mg Documented By: AGATHA Melatonin (Melatonin 3 Mg Tablet) 3 mg PO BEDTIME PRN PRN Reason: Insomnia Last Admin: 10/10/22 22:20 Dose: 3 mg Documented By: OBED Morphine Sulfate (Morphine Sulfate 4 Mg/Ml Cartridge) 4 mg IVPUSH Q4H PRN; Protocol PRN Reason: Pain, Severe (Pain Scale 7-10) Last Admin: 10/10/22 17:34 Dose: 4 mg Documented By: AGATHA Ondansetron HCl (Ondansetron Hcl 4 Mg/2 Ml Vial) 4 mg IVPUSH Q8H PRN PRN Reason: Nausea and Vomiting Last Admin: 10/09/22 19:12 Dose: 4 mg Documented By: BRIDGET Oxycodone HCl (Oxycodone Hcl Immed Release 5 Mg Tablet) 5 mg PO Q4H PRN PRN Reason: Pain, Moderate (Pain Scale 4-6 Pharmacy Consult (Consult Rx Vancomycin Dosing) 1 each MISCELLANE DAILY PRN PRN Reason: Consult order Pharmacy Consult (Consult Rx Vancomycin Dosing) 1 each MISCELLANE DAILY PRN PRN Reason: Consult order Sodium Chloride (0.9 % Sodium Chloride Flush 3 Ml Syringe) 3 ml IVFLUSH QSHIFT [facility] Last Admin: 10/11/22 06:58 Dose: 3 ml Documented By: AGATHA Labs CBC & Chem 7: 10/10/22 07:44 10/11/22 05:38 Labs: Laboratory Results - last 24 hr 10/11/22 10/11/22 05:38 05:38 Estim Creat Clear Calc 148.8 Estimated GFR > 60 Vancomycin Trough 7.6 L Microbiology Microbiology Results: Microbiology 10/10/22 14:25 Gram Stain - Final Leg Left 10/08/22 14:46 Blood Culture - Preliminary Blood - Venous No growth after 48 hours. 10/08/22 14:46 Blood Culture - Preliminary Blood - Venous No growth after 48 hours. Procedures Date of Service Date of Service: 10/11/22 Progress Note: A&P Assessment and plan (1) Abscess of left lower leg: Status: Acute Assessment and Plan: status post I and D large amounts of pus drained much less induration doing well follow-up cultures would recommend another day of IV antibiotics and okay to discharge home tomorrow dry dressings daily Time Spent With Patient Time: Total time spent is greater than 50% in coordination of care (as documented) at patient's floor/unit and/or counseling patient: Quality Stroke Does the patient have a stroke diagnosis?: No VTE Prior VTE?: No VTE Risk Level:: Medical - low VTE Device Contraindication: Treatment Not Indicated VTE Drug Contraindication: Treatment Not Indicated
[2022-10-11 11:57] VITALS: BP 117/75; PULSE 88; RESP 18; TEMP 36.6; O2SAT 96
[2022-10-11] MEDS: oxyCODONE HCl Immed Release 5 MG TABLET PO ×2 (12:00→22:16)
--- NOTE | 2022-10-11 12:16 | P.PNIM_ITS ---
Subjective Subjective Date of Service: 10/11/22 Interval History: Feeling better less lower leg pain, no fevers no chills, no acute issues overnight, tolerating diet no nausea no vomiting no abdominal pain no diarrhea, underwent I&D by General surgery yesterday tolerated procedure well. Review of Systems [employer] no headache no dizziness CVS no chest pain, no palpitation Respiratory no cough no shortness of breath Review of Systems: Yes all other systems are reviewed and are negative Physical Exam Vital Signs: Vital Signs: Last Vital Signs Temp 97.9 F 10/11/22 11:57 Pulse 88 10/11/22 11:57 Resp 18 10/11/22 11:57 BP 117/75 10/11/22 11:57 Pulse Ox 96 10/11/22 11:57 O2 Del Method 10/11/22 11:57 BMI result Body Mass Index 30.8 Const: Other: General awake alert x3, in no acute distress.? Anicteric sclera Neck? supple no JVD. CVS? regular rate rhythm, Respiratory lungs clear to auscultation, no respiratory distress, no wheeze, no rhonchi. Gastrointestinal abdomen soft, nontender, bowel sounds audible,? no guarding , no rigidity. Extremities right leg no edema., left lower extremity less redness and swelling , minimal purulent drainage from I&D site Neuro nonfocal patient moving all 4 extremity speech clear. Skin no rash Psych appropriate affect Objective Data Active Medications Acetaminophen (Acetaminophen 325 Mg Tablet) 650 mg PO Q6H PRN PRN Reason: Pain, Mild (Pain Scale 1-3) Last Admin: 10/09/22 23:32 Dose: 650 mg Documented By: BRIDGET Vancomycin HCl 1,250 mg/ (Sodium Chloride) 250 mls @ 166.667 mls/hr IV Q8H [facility] Last Infusion: 10/11/22 08:55 Dose: 0 mls/hr Documented By: AGATHA Ketorolac Tromethamine (Ketorolac Tromethamine 30 Mg/Ml Vial) 30 mg IVPUSH Q6H PRN PRN Reason: Pain, Moderate (Pain Scale 4-6 Last Admin: 10/10/22 15:26 Dose: 30 mg Documented By: AGATHA Melatonin (Melatonin 3 Mg Tablet) 3 mg PO BEDTIME PRN PRN Reason: Insomnia Last Admin: 10/10/22 22:20 Dose: 3 mg Documented By: OBED Morphine Sulfate (Morphine Sulfate 4 Mg/Ml Cartridge) 4 mg IVPUSH Q4H PRN; Protocol PRN Reason: Pain, Severe (Pain Scale 7-10) Last Admin: 10/10/22 17:34 Dose: 4 mg Documented By: AGATHA Ondansetron HCl (Ondansetron Hcl 4 Mg/2 Ml Vial) 4 mg IVPUSH Q8H PRN PRN Reason: Nausea and Vomiting Last Admin: 10/09/22 19:12 Dose: 4 mg Documented By: BRIDGET Oxycodone HCl (Oxycodone Hcl Immed Release 5 Mg Tablet) 5 mg PO Q4H PRN PRN Reason: Pain, Moderate (Pain Scale 4-6 Last Admin: 10/11/22 12:00 Dose: 5 mg Documented By: AGATHA Pharmacy Consult (Consult Rx Vancomycin Dosing) 1 each MISCELLANE DAILY PRN PRN Reason: Consult order Pharmacy Consult (Consult Rx Vancomycin Dosing) 1 each MISCELLANE DAILY PRN PRN Reason: Consult order Sodium Chloride (0.9 % Sodium Chloride Flush 3 Ml Syringe) [facility] Last Admin: 10/11/22 06:58 Dose: 3 ml Documented By: AGATHA Labs CBC & Chem 7: 10/10/22 07:44 10/11/22 05:38 Labs: Laboratory Results - last 24 hr 10/11/22 10/11/22 05:38 05:38 Estim Creat Clear Calc 148.8 Estimated GFR > 60 Vancomycin Trough 7.6 L Microbiology Microbiology Results: Microbiology 10/10/22 14:25 Gram Stain - Final Leg Left Routine Culture - Preliminary Staphylococcus species 10/08/22 14:46 Blood Culture - Preliminary Blood - Venous No growth after 48 hours. 10/08/22 14:46 Blood Culture - Preliminary Blood - Venous No growth after 48 hours. Assessment and Plan (1) Sepsis: Status: Acute (2) Cellulitis: Status: Acute Plan 37-year-old gentleman with no significant past medical history presented to [facility] with 3 days of left leg redness swelling warmth associated with fever and chills patient noted to have an area of in duration behind left knee with surrounding cellulitis. Sepsis due to left leg cellulitis status post I&D by General surgery yesterday afternoon, noted to have Less r edness and swelling this a.m. Wound culture growing Staphylococcus species, follow final cultures, blood cultures x2 negative, will continue IV vancomycin day 4 WBC improved to 11.7, stable creatinine Being followed by General surgery they recommend 1 more day of IV antibiotic DVT prophylaxis low risk with early ambulation In my clinical judgment patient will need continued inpatient stay in the hospital patient's stay in the hospital for significant left leg cellulitis, abscess, requiring IV antibiotics Quality Stroke Does the patient have a stroke diagnosis?: No VTE Prior VTE?: No VTE Risk Level:: Medical - low VTE Device Contraindication: Treatment Not Indicated VTE Drug Contraindication: Treatment Not Indicated
[2022-10-11 15:03] VITALS: BP 124/68; PULSE 79; RESP 18; TEMP 36.4; O2SAT 94
[2022-10-11 19:19] VITALS: BP 112/56; PULSE 80; RESP 18; TEMP 36.1; O2SAT 95
[2022-10-11] MEDS: Melatonin 3 MG TABLET PO (22:17)
[2022-10-11 23:39] VITALS: BP 128/66; PULSE 84; RESP 18; TEMP 36.9; O2SAT 94
[2022-10-11] MEDS: vancomycin HCL 1,250 MG in 0.9 % Sodium Chloride 250 ML 166.7 MG IV (23:56)
[2022-10-12 03:34] VITALS: BP 120/60; PULSE 68; RESP 18; TEMP 36.3; O2SAT 98
[2022-10-12 07:28] VITALS: BP 107/58; PULSE 68; RESP 18; TEMP 36.3; O2SAT 97
[2022-10-12] MEDS: 0.9 % Sodium Chloride Flush 3 ML SYRINGE IVFLUSH (07:31)
[2022-10-12] MEDS: oxyCODONE HCl Immed Release 5 MG TABLET PO (07:35)
[2022-10-12 07:43] LABS: Creatinine Clr Calc Pharmacy 152.3; Estimated Glomerular Filt Rate > 60
[2022-10-12 07:51] LABS: Vancomycin Trough 16.2 mcg/mL (10.0-20.0)
--- NOTE | 2022-10-12 08:13 | HE.PHANOTE ---
IRENE LOWRY DECREASED DOSE TO 1250MG Q12H SINCE TROUGH CORRELATES TO AUC >600 AND THEREFORE INCREASED RISK OF TOXICITY. NEXT LEVEL 10/13 @0800 REMEDIOS
--- NOTE | 2022-10-12 09:28 | PM.PNGS ---
Subjective Subjective Date of Service: 10/12/22 Interval history: feels better less pain no fever Physical Exam Vital Signs: Vital Signs: Last Vital Signs Temp 97.4 F 10/12/22 07:28 Pulse 68 10/12/22 07:28 Resp 18 10/12/22 07:28 BP 107/58 L 10/12/22 07:28 Pulse Ox 97 10/12/22 07:28 O2 Del Method 10/12/22 07:28 BMI result Body Mass Index 30.8 Const: General: comfortable and no acute distress Resp: Effort & Inspection: normal respiratory effort Extrem: Other: much less induration and redness on I and D site on left leg Objective Data Active Medications Acetaminophen (Acetaminophen 325 Mg Tablet) 650 mg PO Q6H PRN PRN Reason: Pain, Mild (Pain Scale 1-3) Last Admin: 10/09/22 23:32 Dose: 650 mg Documented By: BRIDGET Vancomycin HCl 1,250 mg/ (Sodium Chloride) 250 mls @ 166.667 mls/hr IV Q12H [facility] Ketorolac Tromethamine (Ketorolac Tromethamine 30 Mg/Ml Vial) 30 mg IVPUSH Q6H PRN PRN Reason: Pain, Moderate (Pain Scale 4-6 Last Admin: 10/10/22 15:26 Dose: 30 mg Documented By: AGATHA Melatonin (Melatonin 3 Mg Tablet) 3 mg PO BEDTIME PRN PRN Reason: Insomnia Last Admin: 10/11/22 22:17 Dose: 3 mg Documented By: OBED Morphine Sulfate (Morphine Sulfate 4 Mg/Ml Cartridge) 4 mg IVPUSH Q4H PRN; Protocol PRN Reason: Pain, Severe (Pain Scale 7-10) Last Admin: 10/10/22 17:34 Dose: 4 mg Documented By: AGATHA Ondansetron HCl (Ondansetron Hcl 4 Mg/2 Ml Vial) 4 mg IVPUSH Q8H PRN PRN Reason: Nausea and Vomiting Last Admin: 10/09/22 19:12 Dose: 4 mg Documented By: BRIDGET Oxycodone HCl (Oxycodone Hcl Immed Release 5 Mg Tablet) 5 mg PO Q4H PRN PRN Reason: Pain, Moderate (Pain Scale 4-6 Last Admin: 10/12/22 07:35 Dose: 5 mg Documented By: TR Pharmacy Consult (Consult Rx Vancomycin Dosing) 1 each MISCELLANE DAILY PRN PRN Reason: Consult order Pharmacy Consult (Consult Rx Vancomycin Dosing) 1 each MISCELLANE DAILY PRN PRN Reason: Consult order Sodium Chloride (0.9 % Sodium Chloride Flush 3 Ml Syringe) [facility] Last Admin: 10/12/22 07:31 Dose: 3 ml Documented By: TR Labs CBC & Chem 7: 10/10/22 07:44 10/12/22 06:28 Labs: Laboratory Results - last 24 hr 10/12/22 10/12/22 06:28 06:28 Estim Creat Clear Calc 152.3 Estimated GFR > 60 Vancomycin Trough 16.2 Microbiology Microbiology Results: Microbiology 10/10/22 14:25 Gram Stain - Final Leg Left Routine Culture - Final Staphylococcus aureus Procedures Date of Service Date of Service: 10/12/22 Progress Note: A&P Assessment and plan (1) Abscess of left lower leg: Status: Acute Assessment and Plan: S/P I and D dressings changed much improved ok to dc home on PO abx dry dressings daily Time Spent With Patient Time: Total time spent is greater than 50% in coordination of care (as documented) at patient's floor/unit and/or counseling patient: Quality Stroke Does the patient have a stroke diagnosis?: No VTE Prior VTE?: No VTE Risk Level:: Medical - low VTE Device Contraindication: Treatment Not Indicated VTE Drug Contraindication: Treatment Not Indicated
[2022-10-12] MEDS: vancomycin HCL 1,250 MG in 0.9 % Sodium Chloride 250 ML 166.67 MG IV (11:03)
--- NOTE | 2022-10-12 11:36 | MHC.CM.PN ---
PT MEDICALLY CLEARED FOR D/C HOME SELF-CARE W/SPOUSE FOR TRANSPORT
[2022-10-12 11:38] VITALS: BP 113/68; PULSE 79; RESP 18; TEMP 36.6; O2SAT 95
--- NOTE | 2022-10-12 13:20 | P.DS_ITS ---
DS: Providers Provider Date of Service: 10/12/22 Date of admission: 10/08/22 16:47 Primary care physician: Anthony Cervantes MD Consults: 10/10/22 11:10 Consult to General Surgery Routine Consulting Provider: Vito Arevalo Reason for consultation: left leg cellulitis/abscess Has provider been notified: No DS: Diagnosis Discharge Diagnosis (1) Abscess of left lower leg: Status: Acute DS: Summary Hospital Course Hospital Course: History of presenting illness Date of Service: 10/08/22 Attending physician on admission: Beckie Sandoval Chief Complaint: Left like redness and swelling 37-year-old gentleman with no significant past medical history presented to [facility] with 3 day history of left leg redness and swelling patient noted a pimple 3 days ago that popped and he noticed gradual worsening of redness warmth and swelling of left leg since yesterday he developed fever on and off up to 102,, patient denies insect bite, no spider bite, no injury, no rash, no trauma, in the emergency room patient noted to be febrile, tachycardic with elevated WBC count, x-ray left knee showed no acute abnormality patient underwent for CT leg report is pending patient treated in the emergency room with IV fluids, IV Zosyn and doxycycline and now being admitted to [facility] with a diagnosis of acute left leg cellulitis involving the left leg behind knee, extending towards the left thigh. Hospital course 37-year-old gentleman with no significant past medical history presented to [facility] with 3 days of left leg redness swelling warmth associated with fever and chills patient noted to have an area of in duration behind left knee with surrounding cellulitis. Sepsis due to left leg cellulitis and abscess patient was admitted to medical floor and placed on IV vancomycin, CT left knee, was obtained that showed? Subcutaneous fat stranding and fluid along the distal thigh,laterally and posteriorly, along the knee laterally and proximal lower extremity, compatible with cellulitis.?no osteomyelitis, no necrotizing fasciitis no septic arthritis, subsequently patient noted to pus point, therefore underwent I&D by General surgery large amount of pus was drained,, blood cultures x2 negative, wound culture grew Staphylococcus aureus, since redness swelling and induration has resolved, incision is clean with no further drainage, therefore patient is being discharged home on by mouth antibiotics and recommended to her blood dry sterile dressing, patient renal function remains stable WBC improved to 11.7 Time Spent with Patient Time attestation: Total time spent providing and/or coordinating discharge services: Discharge coordination time: Greater than 30 minutes Quality: Safe Use of Opioids Does Pt have an Active Cancer Diagnosis on the Problem List?: No Quality: Stroke Does the patient have a stroke diagnosis?: No Physical Exam Vital Signs: Vital Signs: Last Vital Signs Temp 97.8 F 10/12/22 11:38 Pulse 79 10/12/22 11:38 Resp 18 10/12/22 11:38 BP 113/68 10/12/22 11:38 Pulse Ox 95 10/12/22 11:38 O2 Del Method 10/12/22 11:38 BMI result Body Mass Index 30.8 Const: Other: General awake aler t x3, in no acute distress.? Anicter ic sclera Neck? coronado pple no JVD. CVS? regular rate rhyth m, Respiratory myah gs clear to auscul tation, no respira tory distress, no wheeze, no rhonchi . Gastrointestinal abdomen soft, non tender, bowel soun ds audible,? no gu arding , no rigidi ty. Extremities ri ght leg no edema., left lower extrem ity redness and sw elling for resolve d no new drainage from I&D site Neur o nonfocal patient moving all 4 extr emity speech clear . Skin no rash Psy ch appropriate aff ect DS: Data Data Completed and Pending Labs on day of discharge: Laboratory Results - last 24 hr 10/12/22 10/12/22 06:28 06:28 Creatinine 0.84 Estim Creat Clear Calc 152.3 Estimated GFR > 60 Vancomycin Trough 16.2 Preliminary micro results at discharge 10/08/22 14:46 Blood Culture - Preliminary Blood - Venous No growth after 48 hours. 10/08/22 14:46 Blood Culture - Preliminary Blood - Venous No growth after 48 hours. Discharge Plan Discharge Anticipated Discharge Date/Time: 10/12/22 12:04 Patient Disposition: Home, Self-Care Discharge Diagnosis: Left leg cellulitis/abscess Sepsis Referrals: Physician,Unknown J [Physician] - 1 Week Discharge Medications: New doxycycline hyclate 100 mg capsule 100 mg PO BID Qty: 10 0RF Discharge Orders: Discharge Order (Routine); Ordered 10/12/22 Ordered By: Beckie Sandoval Diet: Advance to usual diet Activity on Discharge: As tolerated Stand Alone Forms: Patient Portal Discharge page Care Plan Goals: Take by mouth antibiotic as prescribed apply dry sterile dressing daily/you can take shower, return to check with recurrent redness, swelling, fevers Health Concerns: Strongly recommend to abstain from smoking Plan of Treatment: Follow-up with primary care physician call for appointment in 7-10 days Assessment: As above
== END 2022-10-12 13:48 | disposition home or self-care (01) | DRG 720 ==
LOC: HO.ED 16:48 → HO.EDOVER 16:58 → HO.S3 10-09 03:27
PROVIDERS: Emergency Medicine; Admitting Provider Hospitalist; Emergency Provider Emergency Medicine; PCP Internal Medicine; Visit Provider Hospitalist
DX: A41.9 Sepsis, unspecified organism (principal); L02.416 Cutaneous abscess of left lower limb; B95.61 Methicillin susceptible Staphylococcus aureus infection as the cause of diseases classified elsewhere; L03.116 Cellulitis of left lower limb; F17.210 Nicotine dependence, cigarettes, uncomplicated; Z20.822 Contact with and (suspected) exposure to COVID-19; Z71.6 Tobacco abuse counseling; Z88.0 Allergy status to penicillin
CPT/HCPCS: 36415; 73564; 73701; 80048; 80202; 82247; 82565; 83605; 85025; 85027; 85610; 85730; 87040; 87070; 87077; 87186; 87205; 87635; 99285; J1885; J2270; J2405; J3370; Q9967